=== PATIENT | female | born 1970 | race Caucasian/White ===

== ENCOUNTER 2020-08-14 19:50 | Emergency (ER) | payer MEDICARE, OTHER, SELFPAY ==
[2020-08-14 19:58] VITALS: BP 140/108; PULSE 92; RESP 20; TEMP 36.9; O2SAT 100
--- NOTE | 2020-08-14 20:06 | ED.WOUNDLAC ---
HPI - Wound/Laceration General Chief Complaint: Extremity Problem,Nontraumatic Stated Complaint: AMb Time Seen by Provider: 08/14/20 19:58 Source: patient Mode of arrival: EMS Limitations: no limitations History of Present Illness HPI narrative: 49-year-old woman who is on home dialysis and axis is her own AV fistula comes to the emergency department after having bleeding from her graft. She states that he was a lot of blood and that her room look like a murder seen. She states that she was cleaning it when it started bleeding. EMS arrived shortly thereafter and were able to stem the bleeding with a tourniquet above the graft and a pressure dressing over the graft. When she arrived she had numbness and pain in her left distal arm. tourniquet was applied at 19:28 and removed at 19:55. Onset (ago): minute(s) (30) Extremity Location: Left: arm Body four view annotation: 1. Graft site Place: home Associated symptoms: pain, loss of feeling/numbness and unable to move injured part Treatments prior to arrival: bandage and tourniquet Related Data Home Medications Medication Instructions Recorded Confirmed alprazolam 0.5 mg 08/08/19 metoprolol succinate 50 mg PO 08/08/19 omeprazole 40 mg 08/08/19 prednisone 2.5 mg 08/08/19 ropinirole 0.5 mg 08/08/19 topiramate 25 mg 08/08/19 tramadol 50 mg 08/08/19 venlafaxine 150 mg PO 08/08/19 Allergies Allergy/AdvReac Type Severity Reaction Status Date / Time Sulfa (Sulfonamide Allergy Mild Unknown Verified 08/08/19 13:27 Antibiotics) tacrolimus Allergy Unknown Swelling Verified 08/08/19 13:27 vancomycin Allergy Unknown Other Verified 08/08/19 13:27 Penicillins Allergy Anaphylaxis Verified 08/08/19 13:27 Review of Systems Constitutional: Constitutional: Denies chills and Denies fever(s) ENT: Denies epistaxis, Denies nasal congestion and Denies sore throat Cardiovascular: Cardiovascular: Denies chest pain and Denies radiating jaw, neck or arm pain Respiratory: Respiratory: Denies cough, Denies dyspnea and Denies wheezing Gastrointestinal: Gastrointestinal: Denies abdominal pain, Denies diarrhea, Denies nausea and Denies vomiting Genitourinary: Genitourinary: Denies hematuria, Denies nocturia and Denies dysuria Musculoskeletal: Musculoskeletal: Denies arthralgias, Denies joint swelling and Reports muscle cramps ( Left distal arm) Integumentary/Breasts: Skin/Breast: Denies pruritus, Denies erythema and Denies rash Neurologic: Denies vertigo, Denies dizziness and Denies syncope Hematologic/Lymphatic: Hematologic/Lymphatic: Denies easy bleeding and Denies easy bruising Allergic/Immunologic: Allergic/Immunologic: Denies lip swelling and Denies throat swelling PMFSH Past Medical History Medical History Adrenal disorder Anembryonic Anxiety Depression ESRD (end stage renal disease) Failed kidney transplant GERD (gastroesophageal reflux disease) Hemodialysis patient HTN (hypertension) TESS on CPAP Peripheral neuropathy Pneumonia Restless leg syndrome Sleep apnea Surgical History Surgical History History of nephrectomy, left History of nephrectomy, right Kidney transplant recipient Social History Social History Smoking status: Former smoker Gender identity (if verbalized by the patient): Female Exam Const: General: alert and ill appearing chronically Nutritional Appearance: obese Orientation/consciousness: patient oriented x3 Other: moderate acute distress HENMT: Head: normal to inspection Mouth: Yes moist mucous membranes Throat: posterior oropharynx normal Eyes: Conjunctivae: conjunctivae normal Pupils: Equal, round and reactive pupils present EOM: EOMs intact bilaterally Resp: Effort & Inspection: normal respiratory effort Auscultation: clear to auscultatio
[2020-08-14 20:30] LABS: Basophils Absolute Auto 0.05 K/mm3 (0.00-0.10); Basophils Percent Auto 0.5 % (0.0-1.0); Eosinophils Absolute Auto 0.06 K/mm3 (0.02-0.50); Eosinophils Percent Auto 0.5 % (1.0-6.0); Hematocrit 27.9 % (35.0-49.0); Hemoglobin 8.8 g/dL (12.0-15.0); Immature Granulocyte Absolute 0.03 K/mm3 (0.00-0.00); Immature Granulocyte Percent A 0.3 % (0.0-0.0); Lymphocytes Absolute Auto 3.61 K/mm3 (1.10-4.50); Mean Corpuscular HGB Conc 31.5 g/dL (32.0-36.0); Mean Corpuscular Hemoglobin 31.1 pg (27.0-31.0); Mean Corpuscular Volume 98.6 fL (78.0-102.0); Mean Platelet Volume 11.4 fl (9.2-11.8); Monocytes Absolute Auto 0.62 K/mm3 (0.10-0.90); Monocytes Percent Auto 5.7 % (2.0-11.0); Neutrophils Absolute Auto 6.6 K/mm3 (1.7-7.2); Nucleated Red Blood Cells Absolute Auto 0.06 K/mm3 (0.00-0.00); Nucleated Red Blood Cells Perc 0.5 % (0-0.0); Platelet Count Result 340 K/mm3 (150-420); Red Blood Count 2.83 M/mm3 (4.20-5.40); Red Cell Distribution Width 15.9 % (11.6-14.4)
--- NOTE | 2020-08-14 20:32 | PC.NURSE ---
[address] per dr morales for vascular consult
--- NOTE | 2020-08-14 20:36 | PC.NURSE ---
pt resting per cot. warm blanket applied . lights out for comfort.
[2020-08-14 20:45] LABS: Alkaline Phosphatase 99 U/L (46-116); Anion Gap 16 mmol/L (8-16); Aspartate Amino Transferase 15 U/L (15-37); Bilirubin,Total 0.4 mg/dL (0.00-1.00); Carbon Dioxide 20 mmol/L (21-32); Chloride 96 mmol/L (98-108); Potassium 4.1 mmol/L (3.5-5.1); Sodium 132 mmol/L (136-145); Total Protein 6.5 g/dL (6.4-8.2)
[2020-08-14 20:46] VITALS: BP 156/92; PULSE 82; RESP 20; TEMP 36.9; O2SAT 100
--- NOTE | 2020-08-14 21:13 | PC.NURSE ---
gbaas here and pt loaded to ems cot. report to megha. pt alert and oriented. no active bleeding noted to pressure dressing.
== END 2020-08-14 21:14 | disposition short-term general hospital (02) ==
PROVIDERS: Emergency Provider Emergency Medicine; PCP Family Medicine
DX: T82.838A Hemorrhage due to vascular prosthetic devices, implants and grafts, initial encounter (principal); N18.6 End stage renal disease; Z94.0 Kidney transplant status; K21.9 Gastro-esophageal reflux disease without esophagitis; Z87.891 Personal history of nicotine dependence
CPT/HCPCS: 36415; 80053; 85025; 85610; 85730; 99285

== ENCOUNTER → 2020-10-15 15:11 | Outpatient (CLI) | payer MEDICARE, OTHER, SELFPAY ==
--- NOTE | ~2020-10-15 | MR_ITS ---
EXAMINATION: MR brain/brain stem wo con EXAM DATE: 10/15/2020 16:21 INDICATION: Facial weakness facial paralysis. Generalized headaches. TECHNIQUE: Magnetic resonance imaging (MRI) of the brain/brain stem obtained without contrast. Sagitt al T1, axial diffusion, gradient echo (T2*), T1, T2, FLAIR sequences obtained. There is no prior st udy for comparison. FINDINGS: There is moderate-sized mucous retention cyst inferior aspect left maxillary sinus. There a re no areas of restricted diffusion to suggest acute infarction. There is no acute hemorrhage seen o n the T2*, a hemosiderin sensitive sequence. No intraparenchymal brain mass. The ventricles are norm al in size. There are no extra-axial collections. Flow voids are seen in the cerebral arteries on t he T2-weighted sequences consistent with their expected patency. The orbits are unremarkable. Soft tissue is unremarkable. IMPRESSION: 1. Left maxillary sinus retention cysts. 2. Unremarkable brain. Reviewed, dictated and finalized at location A.
== END ==
PROVIDERS: PCP Family Medicine; Visit Provider Family Medicine
DX: R29.810 Facial weakness (principal)
CPT/HCPCS: 70551

== ENCOUNTER 2020-10-22 16:32 | Outpatient (RCR) | payer MEDICARE, OTHER, SELFPAY ==
--- NOTE | 2020-10-22 17:44 | PTOPEVAL ---
Thank you for referring Tequila Woods to [facility].? The patient is scheduled to be seen for therapy? ____x/week for ___ weeks. Please review, sign, date and return this plan of care GERBER. I agree with and certify that the following plan of care is medically necessary. Referring Physician Date Admitting Provider: Attending Provider: Brayan Osullivan MD Referring Provider: *PT Outpatient Evaluation Start: 10/22/20 16:42 Freq: Status: Active Protocol: Document 10/22/20 16:45 JTF (Rec: 10/22/20 17:43 [facility] [id number]) Therapy Assessment Status Assessment Status Assessment Status Evaluation Outpatient Past Medical History Cardiovascular History Hx Hypertension Yes Gastrointestinal History Hx Gastroesophageal Reflux Disease Yes Genitourinary History Hx Dialysis Yes Hx Nephrectomy Yes Psychosocial History Hx Anxiety Yes Hx Depression Yes Evaluation Information Problem 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 she Family reports she did no notice anything until she began trying to eat. she reports she went to the ER to be evaluated for hammonds's palsy vs a stroke. she reports she has had 2 kidney transplants. she reports she had no kidneys now . she reports she does dialysis 3x weekly. she reports she was just recently in the hospital this past week from wednesday to wednesday. Prior Level of Function Comments Additional Prior Level of Function patient reports she has had no Comments issues for 35 years when she last had bells palsy. Pain Assessment Timing of Pain Assessment Timing of Pain Assessment Assessment Pain Scale Pain Scale Used Numeric (1 - 10) Self Report Pain Assessment Right Ear(s) Reported Pain Level 8 Pain Frequency Acute,Continuous Lowest Pain Intensity 7 Greatest Pain Intensity 10 Pain Score Pain Score 8: Self Report Interventions Used Interventions Used By Clinicians Activity or ADL's,Education, Exercise Palpation Assessment Palpation Palpation -dropping R side of the face -patient is unable to
--- NOTE | 2021-01-27 09:35 | PCPTNOTE ---
01/27/21 - mrs. quiroz has not returned to therapy in 2 months. she has been dc'd from skilled PT services and all progress towards goals will be taken from her most recent evaluation/note.
== END 2020-11-08 23:59 | disposition home or self-care (01) ==
LOC: CHSPT 16:32
PROVIDERS: PCP Family Medicine; Visit Provider Family Medicine
DX: G51.0 Bell's palsy (principal)
CPT/HCPCS: 97110; 97112; 97161; 97530

== ENCOUNTER 2020-11-29 10:50 | Emergency (ER) | payer MEDICARE, OTHER, SELFPAY ==
--- NOTE | ~2020-11-29 | CT_ITS ---
EXAMINATION: CT abdomen pelvis w con DATE: 11/29/2020 12:28 INDICATION: Right abdominal pain. Nausea and constipation. TECHNIQUE: Computed tomography (CT) of the abdomen and pelvis was performed with 100 mL Omnipaque 350 intravenous contrast. Automated exposure control and iterative reconstruction technique were employe d. The dose-length product was 827.58 mGy-cm. COMPARISON: None. FINDINGS: The visualized portions of the lung bases demonstrate minimal atelectasis on the right. The re is a small right pleural effusion. The heart size is normal. No pericardial effusion. The liver an d spleen are normal. The gallbladder is distended. The pancreas and adrenal glands are normal. There are are changes of bilateral nephrectomies. There are dystrophic calcifications in the left iliac fos sa and the overlying subcutaneous fat. There are no dilated loops of bowel. The appendix is normal. T here is a large volume of ascites. There is a peritoneal dialysis catheter in expected position. Ther e are no pathologically enlarged lymph nodes. There is a small sliding hiatal hernia. There is mild t horacolumbar spondylosis. IMPRESSION: 1. Gallbladder distention, which may be secondary to fasting or acute cholecystitis. Correlate with p hysical exam. 2. Large volume of ascites with peritoneal dialysis catheter in expected position. 3. Small right pleural effusion. Reviewed, dictated and finalized at location A. IMPRESSION: 1. Gallbladder distention, which may be secondary to fasting or acute cholecyst itis. Correlate with physical exam. 2. Large volume of ascites with peritoneal dialysis catheter in expected positi on. 3. Small right pleural effusion.
[2020-11-29 11:20] VITALS: BP 191/83; PULSE 102; RESP 18; TEMP 37; O2SAT 97
[2020-11-29 12:46] VITALS: BP 208/77; PULSE 62; RESP 20; O2SAT 99
[2020-11-29 13:01] LABS: Basophils Absolute Auto 0.02 K/mm3 (0.00-0.10); Basophils Percent Auto 0.2 % (0.0-1.0); Eosinophils Absolute Auto 0.03 K/mm3 (0.02-0.50); Eosinophils Percent Auto 0.3 % (1.0-6.0); Hematocrit 32.2 % (35.0-49.0); Hemoglobin 10.6 g/dL (12.0-15.0); Immature Granulocyte Absolute 0.03 K/mm3 (0.00-0.00); Immature Granulocyte Percent A 0.3 % (0.0-0.0); Lymphocytes Absolute Auto 2.06 K/mm3 (1.10-4.50); Lymphocytes Percent Auto 23.9 % (18.0-42.0); Mean Corpuscular HGB Conc 32.9 g/dL (32.0-36.0); Mean Corpuscular Hemoglobin 30.4 pg (27.0-31.0); Mean Corpuscular Volume 92.3 fL (78.0-102.0); Mean Platelet Volume 10.9 fl (9.2-11.8); Monocytes Absolute Auto 0.56 K/mm3 (0.10-0.90); Monocytes Percent Auto 6.5 % (2.0-11.0); Neutrophils Absolute Auto 5.9 K/mm3 (1.7-7.2); Neutrophils Percent Auto 68.8 % (50.0-70.0); Nucleated Red Blood Cells Absolute Auto 0.02 K/mm3 (0.00-0.00); Nucleated Red Blood Cells Perc 0.2 % (0-0.0); Platelet Count Result 237 K/mm3 (150-420); Red Blood Count 3.49 M/mm3 (4.20-5.40); Red Cell Distribution Width 15.1 % (11.6-14.4); White Blood Count 8.6 K/mm3 (4.8-10.8)
[2020-11-29 13:17] VITALS: BP 191/84
[2020-11-29 13:17] LABS: Alanine Aminotransferase 21 U/L (14-59); Albumin Level 3.2 g/dL (3.4-5.0); Alkaline Phosphatase 157 U/L (46-116); Amylase 8 U/L (25-115); Anion Gap 10 mmol/L (8-16); Aspartate Amino Transferase < 10 U/L (15-37); Bilirubin,Total 0.4 mg/dL (0.00-1.00); Blood Urea Nitrogen 39 mg/dL (7-18); Calcium 8.8 mg/dL (8.5-10.1); Carbon Dioxide 31 mmol/L (21-32); Chloride 92 mmol/L (98-108); Estimated CRCL calculation 7 ml/min; Estimated Glomerular Filt Rate 5; Glucose 80 mg/dL (70-99); Lipase 520 U/L (73-393); Osmolality Calculated 284 mOsm/kg (285-295); Potassium 3.9 mmol/L (3.5-5.1); Sodium 133 mmol/L (136-145); Total Protein 6.4 g/dL (6.4-8.2)
--- NOTE | 2020-11-29 13:34 | ED.ABDPAIN ---
HPI - Abdominal Pain General Chief Complaint: Abdominal Pain Stated Complaint: r sided abd pain Time Seen by Provider: 11/29/20 11:30 Source: patient Mode of arrival: ambulatory Limitations: no limitations History of Present Illness HPI narrative: Patient comes in with diffuse abdominal pain over the past 3 days. She has had abdominal pain since Wednesday, which she describes as a dull, crampy pain. She has been using her peritoneal dialysis catheter for 2.5 weeks. Previously she did hemodialysis with a fistula in her left upper arm. Pain has been ongoing, becoming more severe over the past 2.5 days with increasing intensity of pain and cramping. This has not been relieved by medications taken at home. MD elicited complaint: abdominal pain Pertinent past history: other (peritoneal dialysis) Onset (ago): day(s) Pain Consistency: constant Location: diffuse Severity: moderate Quality: cramping and dull Radiation: other (diffuse) Exacerbating factors: other (deep breathing) Relieving factors: nothing Associated symptoms: nausea and anorexia Related Data Home Medications Medication Instructions Recorded Confirmed alprazolam 0.5 mg PO DAILY 08/08/19 11/29/20 metoprolol succinate 50 mg PO DAILY 08/08/19 11/29/20 omeprazole 40 mg PO DAILY 08/08/19 11/29/20 prednisone 2.5 mg PO DAILY 08/08/19 11/29/20 ropinirole 0.5 mg PO DAILY 08/08/19 11/29/20 topiramate 25 mg PO DAILY 08/08/19 11/29/20 tramadol 50 mg PO DAILY 08/08/19 11/29/20 venlafaxine 150 mg PO DAILY 08/08/19 11/29/20 Allergies Allergy/AdvReac Type Severity Reaction Status Date / Time Sulfa (Sulfonamide Allergy Mild Unknown Verified 11/29/20 11:44 Antibiotics) tacrolimus Allergy Unknown Swelling Verified 11/29/20 11:44 vancomycin Allergy Unknown Other Verified 11/29/20 11:44 Penicillins Allergy Anaphylaxis Verified 11/29/20 11:44 Review of Systems Constitutional: Constitutional: Reports no additional constitutional complaints Comments: denies fever and chills Eyes: Eyes: Reports no additional eye complaints ENT: Reports system reviewed and no additional complaints, except as documented Cardiovascular: Cardiovascular: Reports no additional cardiovascular complaints Respiratory: Respiratory: Reports no additional respiratory complaints Gastrointestinal: Gastrointestinal: Reports no additional gastrointestinal complaints Genitourinary: Genitourinary: Reports no additional female genitourinary complaints Musculoskeletal: Musculoskeletal: Reports no additional musculoskeletal complaints Integumentary/Breasts: Skin/Breast: Reports system reviewed and no additional complaints, except as docu Neurologic: Reports system reviewed and no additional complaints, except as documented Psychiatric: Psychiatric: Reports no additional psychiatric complaints Endocrine: Endocrine: Reports no additional endocrine complaints Hematologic/Lymphatic: Hematologic/Lymphatic: Reports no additional hematologic/lymphatic complaints Allergic/Immunologic: Allergic/Immunologic: Reports no additional allergic/immunologic complaints PMFSH Past Medical History Medical History Adrenal disorder Anembryonic Anxiety Depression ESRD (end stage renal disease) Failed kidney transplant GERD (gastroesophageal reflux disease) Hemodialysis patient HTN (hypertension) TESS on CPAP Peripheral neuropathy Pneumonia Restless leg syndrome Sleep apnea Surgical History Surgical History History of nephrectomy, left History of nephrectomy, right Kidney transplant recipient Family History Family History Mother No significant family history Social History Social History Smoking status: Former smoker Gender identity (if verbalized by the patient): Female Exam Const: Gene
[2020-11-29 14:51] LABS: SARS-CoV-2 Ag Negative (Negative)
[2020-11-29 15:09] VITALS: BP 197/83; PULSE 62; RESP 20; TEMP 36.9; O2SAT 100
[2020-11-29 15:26] LABS: Erythrocyte Sedimentation Rate 24 mm/hr (0-20)
== END 2020-11-29 15:15 | disposition home or self-care (01) ==
PROVIDERS: Emergency Provider Emergency Medicine; PCP Family Medicine
DX: K65.9 Peritonitis, unspecified (principal); T86.12 Kidney transplant failure; N18.6 End stage renal disease; Z99.2 Dependence on renal dialysis; Z90.5 Acquired absence of kidney; E27.9 Disorder of adrenal gland, unspecified; K21.9 Gastro-esophageal reflux disease without esophagitis; I12.0 Hypertensive chronic kidney disease with stage 5 chronic kidney disease or end stage renal disease; G47.33 Obstructive sleep apnea (adult) (pediatric); G62.9 Polyneuropathy, unspecified; G25.81 Restless legs syndrome; F41.9 Anxiety disorder, unspecified; F32.9 Major depressive disorder, single episode, unspecified; Z87.891 Personal history of nicotine dependence; Z20.822 Contact with and (suspected) exposure to COVID-19
CPT/HCPCS: 36415; 74177; 80053; 82150; 83690; 85025; 85652; 87426; 99282; 99284; C9803; Q9967

== ENCOUNTER 2021-08-04 17:05 | Emergency (ER) | payer MEDICARE, OTHER, SELFPAY ==
[2021-08-04 17:22] VITALS: BP 92/74; PULSE 104; RESP 16; TEMP 36.5; O2SAT 98
--- NOTE | 2021-08-04 18:26 | ED.URI ---
HPI - URI/Sore Throat General Chief Complaint: Upper Respiratory Infection Stated Complaint: cough sinus pressure drainage Time Seen by Provider: 08/04/21 18:26 Source: patient History of Present Illness HPI Narrative: Patient presents with a 6-day history of nasal congestion and runny nose. Patient is currently on doxycycline for a catheter infection. Patient is not taking anything other than Ratna-Dawson plus for her symptoms. Patient is a dialysis patient and is not vaccinated. Patient denies any short of breath and no chest pain. Related Data Home Medications Medication Instructions Recorded Confirmed alprazolam 0.5 mg PO DAILY 08/08/19 08/04/21 metoprolol succinate 50 mg PO DAILY 08/08/19 08/04/21 omeprazole 40 mg PO DAILY 08/08/19 08/04/21 prednisone 2.5 mg PO DAILY 08/08/19 08/04/21 ropinirole 0.5 mg PO DAILY 08/08/19 08/04/21 topiramate 25 mg PO DAILY 08/08/19 08/04/21 tramadol 50 mg PO DAILY 08/08/19 08/04/21 venlafaxine 150 mg PO DAILY 08/08/19 08/04/21 Allergies Allergy/AdvReac Type Severity Reaction Status Date / Time Sulfa (Sulfonamide Allergy Mild Unknown Verified 08/04/21 17:33 Antibiotics) tacrolimus Allergy Unknown Swelling Verified 08/04/21 17:33 vancomycin Allergy Unknown Other Verified 08/04/21 17:33 Penicillins Allergy Anaphylaxis Verified 08/04/21 17:33 Review of Systems Review of Systems: CONSTITUTIONAL: Denies chills, or sweats. Reports fever and generalized body aches EYES: Denies visual changes, redness, or discharge. ENT: Denies otalgia. Reports nasal congestion runny nose and sore throat CARDIOVASCULAR: Denies chest pain, palpitations, or edema. RESPIRATORY: Denies dyspnea. Reports occasional cough GASTROINTESTINAL: Denies abdominal pain, nausea, vomiting, or diarrhea. GENITOURINARY: Denies dysuria or hematuria. SKIN: Denies rash or itching. MUSCULOSKELETAL: Denies back pain, joint pain, or myalgia. Reports generalized body aches NEUROLOGIC: Denies headache, numbness, or weakness. PSYCHIATRIC: Denies anxiety or depression. [facility] Past Medical History Medical History Adrenal disorder Anembryonic Anxiety Depression ESRD (end stage renal disease) Failed kidney transplant GERD (gastroesophageal reflux disease) Hemodialysis patient HTN (hypertension) TESS on CPAP Peripheral neuropathy Pneumonia Restless leg syndrome Sleep apnea Surgical History Surgical History History of nephrectomy, left History of nephrectomy, right Kidney transplant recipient Family History Family History Mother No significant family history Social History Social History Smoking status: Former smoker Gender identity (if verbalized by the patient): Female Comments At time of signature, agree with nursing past medical, surgical, social and family history. There is no relevant family history pertinent to the presenting complaint Exam Narrative: The patient is a well-developed, well-nourished in no acute distress. SKIN: Skin is warm and dry without erythema, swelling or exudate. There is good turgor. No tenting. HEAD: Atraumatic. Normocephalic. No temporal or scalp tenderness. EYES: Moist and bright. Sclera and conjunctivae normal. No discharge. PERRLA. Extraocular motions intact. Gross visual acuity intact. EARS: Pinna is normal shape and contour. Clear external auditory canals. TM pearly wisdom with good cone of light, no erythema or suppuration. Bilateral cerumen noted no gross hearing deficit. NOSE: pink, moist mucosa with good air movement. Clear rhinorrhea without nasal flaring. Septum midline. Mouth: moist mucous membranes. THROAT; mild erythema noted to posterior oropharynx with moderate postnasal drainage. Without exudate or ulceration.. Uvula midline. Normal movement of soft palat
== END 2021-08-04 18:37 | disposition home or self-care (01) ==
PROVIDERS: Emergency Provider Nurse Practitioner Family
DX: J06.9 Acute upper respiratory infection, unspecified (principal); Z20.822 Contact with and (suspected) exposure to COVID-19; Z87.891 Personal history of nicotine dependence; G47.33 Obstructive sleep apnea (adult) (pediatric); G25.81 Restless legs syndrome; I12.0 Hypertensive chronic kidney disease with stage 5 chronic kidney disease or end stage renal disease; N18.6 End stage renal disease; Z99.2 Dependence on renal dialysis; F41.9 Anxiety disorder, unspecified; F32.A Depression, unspecified; K21.9 Gastro-esophageal reflux disease without esophagitis; Z90.5 Acquired absence of kidney; T86.12 Kidney transplant failure
CPT/HCPCS: 99213; G0463

== ENCOUNTER 2022-04-25 10:25 | Inpatient (IN) | payer MEDICARE, OTHER, SELFPAY ==
[2022-04-25] VITALS (37 sets, daily range): BP systolic 108–222; BP diastolic 51–124; PULSE 59–82; RESP 10–25; TEMP 36.2–36.8; O2SAT 96–100
--- NOTE | ~2022-04-25 | CT_ITS ---
EXAMINATION: CT abdomen pelvis wo con DATE: 04/25/2022 12:03 INDICATION: Abdominal pain with nausea and vomiting. Peritoneal dialysis. TECHNIQUE: Computed tomography (CT) of the abdomen and pelvis was performed without intravenous contr ast. The dose-length product was 1054.00 mGy-cm. Automated exposure control and iterative reconstruct ion technique were employed. COMPARISON: CT dated 11/29/2020. FINDINGS: Lung bases are unremarkable. Heart size normal. There is mild thickening of the distal esop hagus. Small hiatal hernia. There is ascites. There is a peritoneal dialysis catheter coiled in the p livia. There is scarring in the left abdomen laterally with associated dystrophic calcifications. The re is a calcified soft tissue mass in the left iliac fossa, likely a failed transplant kidney. Small amount of free air, likely iatrogenic from peritoneal dialysis catheter. The liver, spleen, schmitt creas, adrenal glands are unremarkable. The kidneys are not visualized, likely surgically absent. No acute osseous abnormality. IMPRESSION: 1. No acute abdominal abnormality. 2: There is peritoneal dialysis catheter coiled in the pelvis. Moderate free fluid. Small amount of g as, likely iatrogenic from the catheter. Reviewed, dictated and finalized at location A. IMPRESSION: 1. No acute abdominal abnormality. 2: There is peritoneal dialysis catheter coiled in the pelvis. Moderate free fl uid. Small amount of gas, likely iatrogenic from the catheter.
--- NOTE | ~2022-04-25 | CT_ITS ---
EXAMINATION: CT abdomen pelvis wo con DATE: 05/03/2022 10:05 INDICATION: peritonitis TECHNIQUE: Computed tomography (CT) of the abdomen and pelvis was performed without intravenous contr ast. Automated exposure control and iterative reconstruction technique were employed. The dose-length product was 1002.06 mGy-cm. COMPARISON: 04/25/2022. FINDINGS: Lower thorax: Coronary artery calcification. Bilateral dependent atelectasis/scar Liver: Normal. Biliary/Gallbladder: Mildly distended gallbladder, without stone or inflammatory change. No bile duct dilation. Pancreas: Mild atrophy Spleen: Peripheral wedge-shaped hypodensities in the spleen. Adrenals:No mass. Kidneys: Bilateral nephrectomy. GI tract: No small or large bowel dilation. Normal appendix. Mesentery/Peritoneum: Trace ascites. No mass or free air. Retroperitoneum: No mass. Atherosclerotic abdominal aortic and/or arterial calcifications. Pelvis: Small volume free pelvic fluid. Atrophic uterus. Dystrophic calcifications along the left ne ac vessels. Soft Tissues: Coarse, dystrophic calcification in the subcutaneous tissues of the left lower quadrant possibly related to a prior kidney transplant. Left abdominal peritoneal dialysis catheter terminati ng in the pelvis. Mild body wall edema. Bones: No acute osseous finding. 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 No other acute abdominopelvic process detected. Reviewed, dictated and finalized at location K. IMPRESSION: Peripheral, wedge-shaped hypodensities in the spleen, likely representing splen ic infarcts. No other acute abdominopelvic process detected.
[2022-04-25] MEDS: MORPHINE SULFATE (*CRX) 4 MG/ML INJ IV PUSH (11:32)
[2022-04-25] MEDS: ONDANSETRON INJ 4 MG/2 ML VIAL IV PUSH ×3 (11:32→21:18)
[2022-04-25 11:42] LABS: Basophils Absolute Auto 0.1 K/mm3 (0.0-0.1); Basophils Percent Auto 0.3 % (0.2-1.2); Eosinophils Percent Auto 0.1 % (0-4.4); Hematocrit 40.1 % (37.0-47.0); Hemoglobin 13.8 g/dL (12.0-15.0); Immature Granulocyte Absolute 0.08 K/mm3 (0.00-0.031); Immature Granulocyte Percent A 0.4 % (0-0.5); Lymphocytes Absolute Auto 1.44 K/mm3 (0.9-3.2); Lymphocytes Percent Auto 7.9 % (18.3-44.2); Mean Corpuscular HGB Conc 34.4 g/dl (32-36); Mean Corpuscular Hemoglobin 31.1 pg (26-34); Mean Corpuscular Volume 90.3 fl (80-100); Mean Platelet Volume 10.9 fl (7.4-10.4); Monocytes Absolute Auto 0.7 K/mm3 (0.1-0.6); Monocytes Percent Auto 4.1 % (2.6-8.5); Neutrophils Absolute Auto 15.8 K/mm3 (1.3-6.7); Neutrophils Percent Auto 87.2 % (45.5-73.1); Platelet Count Result 326 k/mm3 (150-375); Red Blood Count 4.44 M/mm3 (4.2-5.4); Red Cell Distribution Width 14.1 % (11.5-14.5); White Blood Count 18.1 K/mm3 (4.5-10.0)
[2022-04-25 11:51] LABS: Alanine Aminotransferase 18 U/L (6-35); Albumin Level 4.8 g/dL (3.5-5.1); Alkaline Phosphatase 130 U/L (38-126); Anion Gap 21 mmol/L (8-16); Aspartate Amino Transferase 24 U/L (14-36); Bilirubin,Total 0.6 mg/dL (0.2-1.3); Blood Urea Nitrogen 30 mg/dL (7-17); Calcium 9.9 mg/dL (8.4-10.2); Carbon Dioxide 26 mmol/L (22-30); Chloride 88 mmol/L (98-107); Estimated CRCL calculation 7 ml/min; Estimated Glomerular Filt Rate 5; Glucose 155 mg/dL (65-110); Lipase 249 U/L (23-300); Sodium 135 mmol/L (137-145)
--- NOTE | 2022-04-25 14:08 | ED.GENADULT ---
HPI - General Adult General Chief complaint: Abdominal Pain Stated complaint: vomiting since yesterday; abd pain. PD patient Time Seen by Provider: 04/25/22 10:47 History of Present Illness HPI narrative: Patient is a 51-year-old female who presents to the ER with abdominal pain and nausea and vomiting. Has been vomiting since yesterday. She reports her abdominal pain is on the right side and also on the left side at times. Pain increases after she eats and causes her to vomit. No diarrhea. No fevers or chills or sweats. She undergoes peritoneal dialysis. She has not been checking her peritoneal fluid to see if it is become more cloudy. Her geoscientist is located at [facility]. No history of SBP. Patient reports she takes daily prednisone for immunosuppressive therapy. Related Data Home Medications Medication Instructions Recorded Confirmed alprazolam 0.5 mg tablet 0.5 mg PO DAILY 08/08/19 04/25/22 metoprolol succinate 50 mg 25 mg PO DAILY 08/08/19 04/25/22 tablet,extended release 24 hr omeprazole 40 mg capsule,delayed 40 mg PO DAILY 08/08/19 04/25/22 release prednisone 2.5 mg tablet 2.5 mg PO DAILY 08/08/19 04/25/22 venlafaxine 150 mg 150 mg PO DAILY 08/08/19 04/25/22 capsule,extended release 24 hr Allergies Allergy/AdvReac Type Severity Reaction Status Date / Time Sulfa (Sulfonamide Allergy Mild Unknown Verified 04/25/22 10:40 Antibiotics) tacrolimus Allergy Unknown Swelling Verified 04/25/22 10:40 vancomycin Allergy Unknown Other Verified 04/25/22 10:40 Penicillins Allergy Anaphylaxis Verified 04/25/22 10:40 Review of Systems Review of Systems: All systems reviewed & are unremarkable except as noted in HPI and below Constitutional: Constitutional: Denies chills, Reports fatigue and Denies fever(s) ENT: Denies sore throat Cardiovascular: Cardiovascular: Denies chest pain, Denies rapid heart rate and Denies radiating jaw, neck or arm pain Respiratory: Respiratory: Denies cough and Denies dyspnea Gastrointestinal: Gastrointestinal: Reports abdominal pain, Denies heartburn, Denies diarrhea, Reports nausea and Reports vomiting Genitourinary: Comments: Patient does not make urine PMFSH Past Medical History Medical History (Updated 04/25/22 @ 18:44 by Kiran Upton MD) Adrenal insufficiency Anxiety Congenital kidney disease Depression End-stage renal disease on peritoneal dialysis Failed kidney transplant Gastroesophageal reflux disease Hypertension Obstructive sleep apnea No longer wearing CPAP. Orthostatic hypotension Peripheral neuropathy Restless leg syndrome Surgical History Surgical History (Updated 04/25/22 @ 16:24 by Kathi Underwood PA-C) History of kidney transplant History of nephrectomy, left History of nephrectomy, right Status post creation of arteriovenous fistula Family History Family History (Updated 04/25/22 @ 16:25 by Kathi Underwood PA-C) Mother Kidney disease Father Cerebrovascular accident Sibling Retinoblastoma Social History Social History (Updated 04/25/22 @ 17:07 by Kathi Underwood PA-C) Social History: Lives alone in [place] with 2 cats. No children. On disability. Former smoker, quit in 2014. No alcohol or illicit substance abuse. Surrogate medical decision maker: Taran Woods, brother. Code status: Full code. Spiritual care concerns: No Exam Narrative: GENERAL: Well-appearing, well-nourished, and in no acute distress. HEAD: Normocephalic, atraumatic. EYES: PERRLA and EOMI. ENT: Mucous membranes moist. CHEST: Clear to auscultation. No respiratory distress. HEART: Regular rate and rhythm. Normal peripheral pulses. ABDOMEN: Soft, mild diffuse tenderness without guarding, nondistended, normal active bowel sounds. EXTREMITIES: Normal range of motion. 1+ edema. SKIN: Warm, dry, no rash. NEURO: Alert and oriented x3. PSYCH: Normal mood and affect. Course Course Emergency Course: Patient with benito
[2022-04-25] MEDS: MIDODRINE HCL 10 MG TABLET PO (15:21)
--- NOTE | 2022-04-25 16:08 | PC.NURSE ---
VOR[facility] to not start antibx from CARL Underwood called floor to inform
--- NOTE | 2022-04-25 16:15 | PM.IMHP ---
H&P: HPI History of Present Illness Date/Time: 04/25/22 16:15 <Kathi Underwood PA-C - Last Filed: 04/25/22 22:35> Chief Complaint: Abdominal pain, nausea, vomiting. <Kathi Underwood PA-C - Last Filed: 04/25/22 22:35> Narrative: This is a pleasant 51-year-old female with end-stage renal disease on peritoneal dialysis status post failed kidney transplant x3, hypertension, orthostatic hypotension, gastroesophageal reflux disease, anemia of chronic kidney disease, renal osteodystrophy, obstructive sleep apnea, depression, and anxiety who presented to the emergency department for evaluation of abdominal pain, nausea, and vomiting since . She describes a constant sharp and shooting pain in the periumbilical region which does not radiate. It has been severe enough that she has not been able to sleep and she has not been able to hold down Tylenol for pain due to persistent nausea. She has not been able to hold down any food or much in the way of liquid either. Her stomach has been bloated and she has been constipated, reportedly not having a bowel movement since Wednesday which is unusual for her. She had multiple episodes of nonbilious and nonbloody emesis on and she has had dry heaves since that time. Due to continued symptoms she spoke with the dialysis nurse over the phone who told her she should probably come to the ER for evaluation. Her blood pressure was 222/122 on arrival today but has improved to the 120 to 140 systolic with antiemetics and analgesics. She was previously treated for hypertension however over the last 2 months she has been having troubles with orthostatic hypotension and she is now on midodrine. She has been afebrile and she does not think she has been having fevers at home. Workup in the ED was significant for a white blood cell count of 18.1, sodium 135, potassium 3.0, BUN 30, creatinine 9.10, lipase 249, AST 24, ALT 18. CT of the abdomen and pelvis showed no acute abdominal abnormalities. Her case was discussed with Dr. Pfeiffer (nephrology) and he recommends starting her on empiric ceftazidime; unfortunately there is not a dialysis nurse that can come take a dialysate sample today. At the time my evaluation she is feeling better after receiving IV morphine and ondansetron. <Kathi Underwood PA-C - Last Filed: 04/25/22 22:35> Review of Systems Review of Systems: Twelve systems were reviewed. No chills or sweats. No headache. No sinus congestion or sore throat. No cough. She felt a bit short of breath the last couple of days which she relates to having abdominal bloating, that has since improved. No chest pain. Except as documented, all other systems were reviewed and are negative. <Kathi Underwood PA-C - Last Filed: 04/25/22 22:35> [facility] Past Medical History Medical History: Medical History (Updated 04/26/22 @ 11:54 by Johnny Pfeiffer MD) Adrenal insufficiency Anxiety Congenital kidney disease Depression End-stage renal disease on peritoneal dialysis Erythropoietin deficiency anemia Failed kidney transplant Gastroesophageal reflux disease Hypertension Obstructive sleep apnea No longer wearing CPAP. Orthostatic hypotension Peripheral neuropathy Renal osteodystrophy Restless leg syndrome <Kathi Underwood PA-C - Last Filed: 04/25/22 22:35> Surgical History Surgical History: Surgical History History of kidney transplant History of nephrectomy, left History of nephrectomy, right Status post creation of arteriovenous fistula <Kathi Underwood PA-C - Last Filed: 04/25/22 22:35> Family History Family History: Family History Mother Kidney disease Father Cerebrovascular accident Sibling Retinoblastoma <Kathi Underwood PA-C - Last Filed: 04/25/22 22:35> Social History Social History: Social History (Reviewed 04/26/22 @ 11:53 b
--- NOTE | 2022-04-25 16:50 | PC.NURSE ---
Diana pinto called and notified of PD pt admission.
--- NOTE | 2022-04-25 16:51 | PC.NURSE ---
IV ABT held at this time D/T nursing report from ER stating provider ordered to hold.
--- NOTE | 2022-04-25 16:56 | PC.NURSE ---
IV ABT clarified with provider. Meds to be given.
[2022-04-25] MEDS: BISACODYL 10 MG SUPPOSITORY RECTAL (17:47)
[2022-04-25] MEDS: SODIUM CHLORIDE 0.9% IV 1,000 ML 100 ML IV CONT (17:47)
[2022-04-25] MEDS: POTASSIUM CHLORIDE 20 MEQ TABLET 40 MEQ PO ×2 (17:47→23:54)
--- NOTE | 2022-04-25 18:30 | PC.NURSE ---
Pt's IV infiltrated. Site changed with attempts x2. Vancomycin initiated per orders at 1830. Pt notified nursing that she has had a reaction in the past to Vancomycin. Drip stopped and provider notified.
[2022-04-25] MEDS: diphenhydrAMINE HCl INJ 50 MG/ML VIAL 25 MG IV PUSH (18:56)
[2022-04-25] MEDS: HEPARIN SODIUM 5,000 UNITS/ML VIAL 5000 UNITS SUB-Q (20:28)
[2022-04-25] MEDS: MORPHINE SULFATE (*CRX) 2 MG/ML INJ IV PUSH (20:30)
[2022-04-25 21:30] LABS: Anion Gap 18 mmol/L (8-16); Blood Urea Nitrogen 33 mg/dL (7-17); Calcium 8.9 mg/dL (8.4-10.2); Carbon Dioxide 27 mmol/L (22-30); Chloride 87 mmol/L (98-107); Estimated CRCL calculation 7 ml/min; Estimated Glomerular Filt Rate 4; Glucose 87 mg/dL (65-110); Magnesium 1.3 mg/dL (1.6-2.3); Potassium 3.1 mmol/L (3.4-5.0); Sodium 132 mmol/L (137-145)
[2022-04-25] MEDS: MAGNESIUM SULF 2 GM/WATER 50ML 2 GM/50 ML BAG IVPB (23:54)
[2022-04-26] VITALS (10 sets, daily range): BP systolic 104–155; BP diastolic 65–90; PULSE 60–83; RESP 14–18; TEMP 36.1–36.7; O2SAT 94–100
[2022-04-26] MEDS: MORPHINE SULFATE (*CRX) 2 MG/ML INJ IV PUSH ×2 (02:58→07:11)
[2022-04-26 06:10] LABS: Hemoglobin 11.3 g/dL (12.0-15.0); Mean Corpuscular HGB Conc 33.2 g/dl (32-36); Mean Corpuscular Hemoglobin 30.6 pg (26-34); Mean Corpuscular Volume 92.1 fl (80-100); Mean Platelet Volume 11.3 fl (7.4-10.4); Platelet Count Result 280 k/mm3 (150-375); Red Blood Count 3.69 M/mm3 (4.2-5.4); Red Cell Distribution Width 14.1 % (11.5-14.5); White Blood Count 15.3 K/mm3 (4.5-10.0)
[2022-04-26 06:41] LABS: Alanine Aminotransferase 15 U/L (6-35); Albumin Level 3.4 g/dL (3.5-5.1); Alkaline Phosphatase 101 U/L (38-126); Anion Gap 14 mmol/L (8-16); Aspartate Amino Transferase 16 U/L (14-36); Bilirubin,Total 0.5 mg/dL (0.2-1.3); Blood Urea Nitrogen 33 mg/dL (7-17); Calcium 8.6 mg/dL (8.4-10.2); Carbon Dioxide 25 mmol/L (22-30); Chloride 93 mmol/L (98-107); Estimated CRCL calculation 6 ml/min; Estimated Glomerular Filt Rate 4; Glucose 99 mg/dL (65-110); Magnesium 2.2 mg/dL (1.6-2.3); Phosphorus 5.9 mg/dL (2.5-4.5); Potassium 3.7 mmol/L (3.4-5.0); Sodium 132 mmol/L (137-145)
[2022-04-26] MEDS: FLUTICASONE PROPIONATE 0.05% NA SPR 16 GM BTL (*BKC) 2 SPRAY NASAL (09:11)
[2022-04-26 10:02] LABS: Hepatitis B Surface Antigen Negative (Negative)
[2022-04-26 10:05] LABS: Appearance Peritoneal Fluid Cloudy (Clear); Color Peritoneal Fluid Yellow (Colorless); Lymphocytes Peritoneal Fluid 2 %; Neutrophils Peritoneal Fluid 76 % (0-25); Nucleated Cells Peritoneal Flu 2287 /uL (0-500); RBC Peritoneal Fluid 0 /uL (0-100000); Source Peritoneal Fluid Peritoneal Fluid
[2022-04-26 10:06] LABS: Monocytes Peritoneal Fluid 22 %
[2022-04-26 10:31] LABS: Hepatitis B Surface Anti Res Positive
[2022-04-26] MEDS: HEPARIN SODIUM 5,000 UNITS/ML VIAL 5000 UNITS SUB-Q (11:43)
--- NOTE | 2022-04-26 11:48 | PM.CNNEP ---
Assessment and Plan Assessment and plan (1) End-stage renal disease on peritoneal dialysis: Code(s): N18.6 - End stage renal disease; Z99.2 - Dependence on renal dialysis Status: Acute Assessment and Plan: the patient has end-stage renal disease. This is due to reflux nephropathy. She had been on peritoneal dialysis and had a transplant and now is back on peritoneal dialysis. (2) Generalized abdominal pain: Code(s): R10.84 - Generalized abdominal pain Status: Acute Assessment and Plan: the patient has abdominal pain, nausea vomiting and diarrhea. At 1st it seemed like it might be viral gastroenteritis. However the patient is on peritoneal dialysis. The patient did drop her blood pressure in the emergency room last night according to Dr. Upton and so there was concern of some other sort of septic issue going on. We called the dialysis nurse however there was nobody orthodontic technician assistant that covers peritoneal dialysis. I was not comfortable having someone in experience sample the fluid so we went ahead and gave her the IV antibiotics for fear of sepsis because we did not want to delay this any longer. This morning the patient feels a little bit better after the IV antibiotics but still has some discomfort. The dialysis nurse who knows PD was orthodontic technician assistant today so she came and did the sampling and put her on PD now. She will come back this evening and do another round of dialysis tonight. If blood cultures are negative we can switch to intraperitoneal antibiotics. (3) Electrolyte abnormality: Code(s): E87.8 - Other disorders of electrolyte and fluid balance, not elsewhere classified Status: Acute Assessment and Plan: 1. Sodium level slightly low. This is due to her end-stage kidneys and water drinking. 2. Potassium is doing well 3. bicarbonate level is normal. 4. Phosphorus level is a little high at 5.9. Binders were not on her admission med list. Her calcium level is normal. Will start PhosLo with meals. (4) Gastroesophageal reflux disease: Code(s): K21.9 - Gastro-esophageal reflux disease without esophagitis Status: Acute Assessment and Plan: The patient is on Omeprazole (5) Hypertension: Code(s): I10 - Essential (primary) hypertension Status: Acute Assessment and Plan: the patient had hypertension but now does not require antihypertensives because of her low blood pressure. (6) Orthostatic hypotension: Code(s): I95.1 - Orthostatic hypotension Status: Acute Assessment and Plan: Her blood pressure has been soft at home apparently. She is supposed to see a web site designer. Because of her soft blood pressure I will order an echocardiogram while she is here to rule out cardiomyopathy or some valvular issue.. (7) Obstructive sleep apnea: Code(s): G47.33 - Obstructive sleep apnea (adult) (pediatric) Status: Acute (8) Erythropoietin deficiency anemia: Code(s): D63.1 - Anemia in chronic kidney disease Status: Acute Assessment and Plan: The patient has anemia but not low enough to require Epogen. (9) Renal osteodystrophy: Code(s): N25.0 - Renal osteodystrophy Status: Acute Assessment and Plan: Phosphorus level is a little bit high. Starting PhosLo as above. History of Present Illness Reason for Consult Consult date: 04/26/22 Chief Complaint Chief complaint: Abdominal Pain, Vomitting, possible sbp History of Present Illness Narrative: Tequila is a very pleasant 51-year-old lady who has multiple medical problems including end-stage renal disease on peritoneal dialysis, history of kidney transplant, obstructive sleep apnea, anemia but not requiring EPO yet, renal osteodystrophy with pretty good phosphorus levels lately, hypertension since 8-year-old, chronic reflux nephropathy which led to the end-stage renal disease, anxiety, depression, GERD, seasonal al
--- NOTE | 2022-04-26 11:55 | PM.EVENT ---
Event Note Event Note Event Note: The patient is on peritoneal dialysis. Fluid looks minimally cloudy. She has had 1 exchange. The patient is tolerating the treatment. She was seen at 11:30 a.m.
[2022-04-26 12:41] LABS: EDCOVIDSCREEN Negative (Negative)
[2022-04-26] MEDS: PANTOPRAZOLE 40 MG TABLET PO (12:46)
--- NOTE | 2022-04-26 15:27 | PM.IMPN ---
Progress Note: A&P Assessment and Plan (1) Abdominal pain: Code(s): R10.9 - Unspecified abdominal pain Status: Acute Assessment and Plan: ? sbp iv abx cx pending ? constipation - lactulose ordered (2) Dehydration: Code(s): E86.0 - Dehydration Status: Acute (3) Electrolyte abnormality: Code(s): E87.8 - Other disorders of electrolyte and fluid balance, not elsewhere classified Status: Acute (4) Hypertension: Code(s): I10 - Essential (primary) hypertension Status: Acute (5) Orthostatic hypotension: Code(s): I95.1 - Orthostatic hypotension Status: Acute (6) End-stage renal disease on peritoneal dialysis: Code(s): N18.6 - End stage renal disease; Z99.2 - Dependence on renal dialysis Status: Acute (7) Adrenal insufficiency: Code(s): E27.40 - Unspecified adrenocortical insufficiency Status: Acute (8) Gastroesophageal reflux disease: Code(s): K21.9 - Gastro-esophageal reflux disease without esophagitis Status: Acute Subjective Date/time seen: 04/26/22 15:27 constipated abd pain about the same tolerated pd Exam Narrative: General: Chronically ill, nontoxic-appearing female sitting up in bed. Weight: 85 kilograms. BMI: 33.2. HEENT: PERRL, EOMI. Sclera anicteric. Dry mucous membranes fair Neck: Supple. Respiratory: Lungs are clear to auscultation bilaterally. Cardiovascular: Regular rate and rhythm with S1-S2. Gastrointestinal: Abdomen is soft, nontender, and nondistended with positive bowel sounds. It should be noted that she received IV morphine not long prior to my exam. No guarding or rebound tenderness. Peritoneal dialysis catheter in the left mid quadrant is clean, dry, and intact. Skin: Warm and dry. Extremities: No cyanosis, clubbing, or edema. Radial and pedal pulses intact. Neurological: Alert. Cranial nerves 2-12 are grossly intact. No gross focal deficits to casual conversation. Psychiatric: Pleasant and cooperative with normal mood and affect. Judgment and insight intact. Objective Data Vital Signs Vital Signs: Vital Signs - 24 hr 04/25/22 15:36 04/25/22 15:45 04/25/22 15:46 Temperature Pulse Rate 73 74 78 Respiratory Rate 17 15 16 Blood Pressure 142/85 H Pulse Oximetry 98 98 98 Oxygen Delivery 04/25/22 16:00 04/25/22 16:01 04/25/22 16:57 Temperature 98.2 F Pulse Rate 81 81 69 Respiratory Rate 17 12 18 Blood Pressure 139/94 H 139/70 Pulse Oximetry 100 100 Oxygen Delivery 04/25/22 18:41 04/25/22 19:27 04/25/22 23:15 Temperature 97.8 F 97.3 F L 97.2 F L Pulse Rate 59 L 66 72 Respiratory Rate 18 18 17 Blood Pressure 138/74 121/67 108/51 L Pulse Oximetry 100 99 97 Oxygen Delivery 04/26/22 04:00 04/26/22 08:00 04/26/22 09:04 Temperature 97.3 F L 97.6 F 97.3 F L Pulse Rate 73 76 73 Respiratory Rate 18 14 18 Blood Pressure 155/87 H 152/90 H 155/87 H Pulse Oximetry 100 98 Oxygen Delivery Room Air 04/26/22 12:00 04/26/22 14:40 04/26/22 08:00 Temperature 97.7 F 98 F Pulse Rate 83 77 Respiratory Rate 14 14 Blood Pressure 104/67 119/65 Pulse Oximetry 96 97 Oxygen Delivery Room Air Intake/Output Intake/Output: Intake & Output 04/23/22 04/24/22 04/25/22 04/26/22 23:59 23:59 23:59 23:59 Intake Total 1100 Output Total 0 Balance 1100 Meds/Results Medications: Active Medications Generic Name Dose Route Start Last Admin Trade Name Freq PRN Reason Stop Dose Admin Alprazolam 0.5 mg 04/26/22 21:00 Alprazolam (*Crx) 0.5 Mg Tablet PO HS [facility] Calcium Acetate 667 mg 04/26/22 12:00 04/26/22 12:45 Calcium Acetate 667 Mg Tablet PO Not Given TIDWM JUDITH Fluticasone Propionate 2 spray 04/26/22 09:00 04/26/22 09:11 Fluticasone Propionate 0.05% Na Spr 16 Gm Btl (*Bkc) NASAL 2 spray DAILY JUDITH Administration Heparin Sodium (Porcine) 5,000 units 04/25/22 21:00 04/26/22 11:43 Heparin So
[2022-04-26] MEDS: LACTULOSE 20 GM/30 ML UDC PO (15:37)
[2022-04-27] VITALS (7 sets, daily range): BP systolic 120–136; BP diastolic 66–76; PULSE 91–100; RESP 16–18; TEMP 36.1–37; O2SAT 93–99
[2022-04-27] MEDS: HEPARIN SODIUM 5,000 UNITS/ML VIAL 5000 UNITS SUB-Q ×3 (01:16→20:43)
[2022-04-27 05:30] LABS: Basophils Absolute Auto 0.1 K/mm3 (0.0-0.1); Basophils Percent Auto 0.4 % (0.2-1.2); Eosinophils Absolute Auto 0.1 K/mm3 (0-0.3); Eosinophils Percent Auto 0.4 % (0-4.4); Hematocrit 35.2 % (37.0-47.0); Hemoglobin 11.6 g/dL (12.0-15.0); Immature Granulocyte Absolute 0.06 K/mm3 (0.00-0.031); Immature Granulocyte Percent A 0.4 % (0-0.5); Lymphocytes Absolute Auto 1.74 K/mm3 (0.9-3.2); Lymphocytes Percent Auto 10.9 % (18.3-44.2); Mean Corpuscular Hemoglobin 31.1 pg (26-34); Mean Corpuscular Volume 94.4 fl (80-100); Mean Platelet Volume 11.5 fl (7.4-10.4); Monocytes Absolute Auto 1.5 K/mm3 (0.1-0.6); Monocytes Percent Auto 9.6 % (2.6-8.5); Neutrophils Absolute Auto 12.5 K/mm3 (1.3-6.7); Neutrophils Percent Auto 78.3 % (45.5-73.1); Platelet Count Result 276 k/mm3 (150-375); Red Blood Count 3.73 M/mm3 (4.2-5.4); Red Cell Distribution Width 14.1 % (11.5-14.5); White Blood Count 15.9 K/mm3 (4.5-10.0)
[2022-04-27] MEDS: PANTOPRAZOLE 40 MG TABLET PO ×2 (09:18→20:43)
[2022-04-27] MEDS: FLUTICASONE PROPIONATE 0.05% NA SPR 16 GM BTL (*BKC) 2 SPRAY NASAL (09:19)
[2022-04-27 09:56] LABS: Albumin Level 3.7 g/dL (3.5-5.1); Anion Gap 17 mmol/L (8-16); Blood Urea Nitrogen 23 mg/dL (7-17); Calcium 9.4 mg/dL (8.4-10.2); Carbon Dioxide 27 mmol/L (22-30); Chloride 90 mmol/L (98-107); Estimated CRCL calculation 8 ml/min; Estimated Glomerular Filt Rate 5; Glucose 115 mg/dL (65-110); Phosphorus 4.5 mg/dL (2.5-4.5); Potassium 3.1 mmol/L (3.4-5.0); Sodium 134 mmol/L (137-145)
--- NOTE | 2022-04-27 11:07 | PM.IMPN ---
Progress Note: A&P Assessment and Plan (1) Abdominal pain: Code(s): R10.9 - Unspecified abdominal pain Status: Acute Assessment and Plan: awaiting cultures from peritoneal fluid. Continue IV antibiotics. Appreciate Nephrology consult. Patient is having some constipation. Will increase p.r.n. medications (2) Dehydration: Code(s): E86.0 - Dehydration Status: Acute Assessment and Plan: resolved (3) Electrolyte abnormality: Code(s): E87.8 - Other disorders of electrolyte and fluid balance, not elsewhere classified Status: Acute Assessment and Plan: monitor (4) Hypertension: Code(s): I10 - Essential (primary) hypertension Status: Acute Assessment and Plan: continue current regimen (5) Orthostatic hypotension: Code(s): I95.1 - Orthostatic hypotension Status: Acute Assessment and Plan: Monitor (6) End-stage renal disease on peritoneal dialysis: Code(s): N18.6 - End stage renal disease; Z99.2 - Dependence on renal dialysis Status: Acute (7) Adrenal insufficiency: Code(s): E27.40 - Unspecified adrenocortical insufficiency Status: Acute (8) Gastroesophageal reflux disease: Code(s): K21.9 - Gastro-esophageal reflux disease without esophagitis Status: Acute Plan The patient presented to the emergency department from home for evaluation of sharp and shooting periumbilical abdominal pain, nausea, and vomiting. She now has dry heaves only. She also reports not having a bowel movement since last Wednesday. Vital signs were stable on arrival. Her white blood cell count was elevated 18.1. A CT of the abdomen and pelvis showed no acute findings. At this time she is being admitted to the floor on empiric antibiotics for possible SBP; there is no dialysis nurse available today to obtain dialysate fluid unfortunately so that will have to wait until tomorrow. she looks dry on exam and by labs and she will be cautiously fluid rehydrated overnight with close monitoring of volume status. Sodium and chloride should improve with normal saline. Potassium will be replaced. She is on 2.5 milligrams of prednisone daily for adrenal insufficiency and her electrolytes will be monitored closely. Dr. Pfeiffer has been consulted for peritoneal dialysis orders and his input is appreciated. blood pressure was over 200 systolic on arrival but has improved. Patient states that she was taken off of her antihypertensives in the last couple of months and she in fact is having issues with orthostatic hypotension and she is now on midodrine. Her blood pressures will be monitored frequently. The rest of her home medications will be reviewed and resumed as appropriate. Subjective Date/time seen: 04/27/22 11:07 still complaining of gas and abdominal cramping. She feels like this is constipation. Exam Narrative: General: Chronically ill, nontoxic-appearing female sitting up in bed. Weight: 85 kilograms. BMI: 33.2. HEENT: PERRL, EOMI. Sclera anicteric. Dry mucous membranes fair Neck: Supple. Respiratory: Lungs are clear to auscultation bilaterally. Cardiovascular: Regular rate and rhythm with S1-S2. Gastrointestinal: Abdomen is soft, nontender, and nondistended with positive bowel sounds. It should be noted that she received IV morphine not long prior to my exam. No guarding or rebound tenderness. Peritoneal dialysis catheter in the left mid quadrant is clean, dry, and intact. Skin: Warm and dry. Extremities: No cyanosis, clubbing, or edema. Radial and pedal pulses intact. Neurological: Alert. Cranial nerves 2-12 are grossly intact. No gross focal deficits to casual conversation. Psychiatric: Pleasant and cooperative with normal mood and affect. Judgment and insight intact. Objective Data Vital Signs Vital Signs: Vital Signs - 24 hr 04/26/22 12:00 04/26/22 14:40 04/26/22 19:46 Temperature 97.7 F 98 F 98.0 F Pul
[2022-04-27] MEDS: polyethylene glycoL 3350 17 GM POWD.PACK PO (11:31)
[2022-04-27] MEDS: CALCIUM ACETATE 667 MG TABLET PO (11:32)
[2022-04-27] MEDS: ONDANSETRON INJ 4 MG/2 ML VIAL IV PUSH (12:33)
[2022-04-27] MEDS: DICYCLOMINE HCL 10 MG CAPSULE 20 MG PO ×2 (12:36→20:44)
--- NOTE | 2022-04-27 14:49 | PM.PNNEP ---
Progress Note: A&P Assessment and Plan (1) End-stage renal disease on peritoneal dialysis: Code(s): N18.6 - End stage renal disease; Z99.2 - Dependence on renal dialysis Status: Acute Assessment and Plan: due to reflux nephropathy s/p failed transplant continue nightly CCPD follow electrolytes, volume status, and clearance (2) Peritonitis: Code(s): K65.9 - Peritonitis, unspecified Status: Acute Assessment and Plan: PD flud cell count quite suggestive follow culture data on antibiotics did receive antibiotics BEFORE PD fluid sample was collected (which may skew PD fluid culture results) (3) Orthostatic hypotension: Code(s): I95.1 - Orthostatic hypotension Status: Acute Assessment and Plan: chronically runs low BP medications with holding parameters (4) Erythropoietin deficiency anemia: Code(s): D63.1 - Anemia in chronic kidney disease Status: Chronic Assessment and Plan: due to ESRD no need for Epogen currently (5) Renal osteodystrophy: Code(s): N25.0 - Renal osteodystrophy Status: Chronic Assessment and Plan: follow calcium and phosphorus on binders Will continue to follow. Subjective Date/time seen: 04/27/22 14:49 Chart reviewed - assuming care from Dr. Pfeiffer; tolerated peritoneal dialysis treatment last night without any issues or problems; still with some abdominal pain but unclear if it is constipation, gas, or suspected peritonitis. Exam Narrative: General: WD/WN female in NAD Heart: normal S1 and S2; no rub Lungs: clear to auscultation Abdomen: soft, nontender, nondistended, positive bowel sounds Extremities: no cyanosis or clubbing; no edema Skin: warm and dry Objective Data Vital Signs Vital Signs: Vital Signs Temp Pulse Resp BP Pulse Ox O2 Del Method 04/27/22 14:00 37.0 C 91 16 136/76 99 04/27/22 09:19 18 93 Room Air 04/27/22 09:43 93 Room Air 04/27/22 03:47 36.6 C 91 18 120/70 93 04/26/22 23:16 36.6 C 60 17 144/80 H 94 04/26/22 20:00 74 16 100 Room Air 04/26/22 19:52 36.1 C L 74 16 144/66 H 100 04/26/22 19:48 36.7 C 77 14 119/65 04/26/22 19:46 36.7 C 77 14 119/65 Room Air Intake/Output Intake/Output: Intake & Output 04/24/22 04/25/22 04/26/22 04/27/22 23:59 23:59 23:59 23:59 Intake Total 300 1370 1040 Output Total -257 0 Balance 300 1627 1040 Meds/Results Medications: Active Medications Generic Name Dose Route Start Last Admin Trade Name Freq PRN Reason Stop Dose Admin Alprazolam 0.5 mg 04/26/22 21:00 04/27/22 01:14 Alprazolam (*Crx) 0.5 Mg Tablet PO Not Given HS JUDITH Calcium Acetate 667 mg 04/26/22 12:00 04/27/22 16:48 Calcium Acetate 667 Mg Tablet PO Not Given TIDWM JUDITH Dicyclomine HCl 20 mg 04/27/22 11:09 04/27/22 12:36 Dicyclomine Hcl 10 Mg Capsule PO 20 mg QID PRN Administration Abdominal Cramping Fluticasone Propionate 2 spray 04/26/22 09:00 04/27/22 09:19 Fluticasone Propionate 0.05% Na Spr 16 Gm Btl (*Bkc) NASAL 2 spray DAILY JUDITH Administration Heparin Sodium (Porcine) 5,000 units 04/25/22 21:00 04/27/22 09:19 Heparin Sodium 5,000 Units/Ml Vial SUB-Q 5,000 units Q12HR JUDITH Administration Ceftazidime 0.5 gm/ Dextrose 50 mls @ 100 mls/hr 04/26/22 17:00 04/27/22 17:23 IVPB Infused Q24H JUDITH Infusion Lactulose 20 gm 04/26/22 15:26 04/26/22 15:37 Lactulose 20 Gm/30 Ml Udc PO 20 gm QAM PRN Administration Constipation Metoprolol Succinate 25 mg 04/26/22 21:00 04/27/22 01:14 Metoprolol Succinate Ext Rel 25 Mg Tabcr PO Not Given HS JUDITH Morphine Sulfate 2 mg 04/25/22 22:34 04/26/22 07:11 Morphine Sulfate (*Crx) 2 Mg/Ml Inj IV PUSH 2 mg Q4H PRN Administration Pain Rated 7-10 Ondansetron HCl 4 mg 04/25/22 15:07 04/27/22 12:33 Ondansetron Inj 4 Mg/2
[2022-04-27] MEDS: SIMETHICONE 80 MG TAB.CHEW PO (20:43)
[2022-04-27] MEDS: ALPRAZolam (*CRX) 0.5 MG TABLET PO (20:43)
[2022-04-27] MEDS: predniSONE 2.5 MG TABLET PO (20:43)
[2022-04-27] MEDS: VENLAFAXINE HCL XR 75 MG CAP.ER.24H 150 MG PO (20:44)
[2022-04-27] MEDS: METOPROLOL SUCCINATE EXT REL 25 MG TABCR PO (20:44)
--- NOTE | 2022-04-27 21:50 | PC.NURSE ---
2049 no dialysis here for peritoneal dialysis treatment. paged Branden. return call stated that the nurse is ill, no back up on-call nurse. they will inform dr. jackman and patient will receive treatment in am and pm to catch up. patient informed.
--- NOTE | 2022-04-27 22:16 | PC.NURSE ---
dialysis nurse on floor, some confusion to what happened, but patient will go onto PD tonight, they are informing dr. yoo.
[2022-04-28] VITALS (12 sets, daily range): BP systolic 100–154; BP diastolic 56–92; PULSE 74–94; RESP 16–21; TEMP 35.6–36.7; O2SAT 94–100
[2022-04-28 02:14] LABS: Appearance Peritoneal Fluid Hazy (Clear); Color Peritoneal Fluid Colorless (Colorless); Nucleated Cells Peritoneal Flu 1675 /uL (0-500); RBC Peritoneal Fluid 0 /uL (0-100000); Source Peritoneal Fluid Peritoneal Fluid
[2022-04-28 02:19] LABS: Neutrophils Peritoneal Fluid 74 % (0-25)
[2022-04-28 02:20] LABS: Lymphocytes Peritoneal Fluid 26 %
[2022-04-28] MEDS: SIMETHICONE 80 MG TAB.CHEW PO ×4 (08:05→21:55)
[2022-04-28] MEDS: PANTOPRAZOLE 40 MG TABLET PO ×2 (08:05→21:55)
[2022-04-28] MEDS: HEPARIN SODIUM 5,000 UNITS/ML VIAL 5000 UNITS SUB-Q ×2 (08:06→21:56)
[2022-04-28] MEDS: FLUTICASONE PROPIONATE 0.05% NA SPR 16 GM BTL (*BKC) 2 SPRAY NASAL (08:06)
[2022-04-28 08:41] LABS: Basophils Percent Auto 0.4 % (0.2-1.2); Eosinophils Absolute Auto 0.1 K/mm3 (0-0.3); Eosinophils Percent Auto 0.8 % (0-4.4); Hematocrit 31.8 % (37.0-47.0); Hemoglobin 10.9 g/dL (12.0-15.0); Immature Granulocyte Absolute 0.05 K/mm3 (0.00-0.031); Immature Granulocyte Percent A 0.5 % (0-0.5); Lymphocytes Percent Auto 16.7 % (18.3-44.2); Mean Corpuscular HGB Conc 34.3 g/dl (32-36); Mean Corpuscular Hemoglobin 31.1 pg (26-34); Mean Corpuscular Volume 90.6 fl (80-100); Monocytes Absolute Auto 0.8 K/mm3 (0.1-0.6); Monocytes Percent Auto 7.9 % (2.6-8.5); Neutrophils Absolute Auto 7.5 K/mm3 (1.3-6.7); Neutrophils Percent Auto 73.7 % (45.5-73.1); Platelet Count Result 248 k/mm3 (150-375); Red Blood Count 3.51 M/mm3 (4.2-5.4); Red Cell Distribution Width 13.9 % (11.5-14.5); White Blood Count 10.2 K/mm3 (4.5-10.0)
[2022-04-28] MEDS: CALCIUM ACETATE 667 MG TABLET PO ×3 (08:49→17:13)
[2022-04-28 08:55] LABS: Anion Gap 14 mmol/L (8-16); Blood Urea Nitrogen 25 mg/dL (7-17); Calcium 8.4 mg/dL (8.4-10.2); Carbon Dioxide 28 mmol/L (22-30); Chloride 87 mmol/L (98-107); Estimated CRCL calculation 9 ml/min; Estimated Glomerular Filt Rate 6; Glucose 132 mg/dL (65-110); Potassium 3.2 mmol/L (3.4-5.0); Sodium 129 mmol/L (137-145)
--- NOTE | 2022-04-28 10:28 | PM.IMPN ---
Progress Note: A&P Assessment and Plan (1) Abdominal pain: Code(s): R10.9 - Unspecified abdominal pain Status: Acute Assessment and Plan: awaiting cultures from peritoneal fluid. PD fluid suspicious for infection Continue IV antibiotics. Appreciate Nephrology consult. (2) Dehydration: Code(s): E86.0 - Dehydration Status: Acute Assessment and Plan: resolved (3) Electrolyte abnormality: Code(s): E87.8 - Other disorders of electrolyte and fluid balance, not elsewhere classified Status: Acute Assessment and Plan: monitor (4) Hypertension: Code(s): I10 - Essential (primary) hypertension Status: Acute Assessment and Plan: continue current regimen (5) Orthostatic hypotension: Code(s): I95.1 - Orthostatic hypotension Status: Acute Assessment and Plan: Monitor (6) End-stage renal disease on peritoneal dialysis: Code(s): N18.6 - End stage renal disease; Z99.2 - Dependence on renal dialysis Status: Acute Assessment and Plan: (7) Adrenal insufficiency: Code(s): E27.40 - Unspecified adrenocortical insufficiency Status: Acute Assessment and Plan: patient is on prednisone. (8) Gastroesophageal reflux disease: Code(s): K21.9 - Gastro-esophageal reflux disease without esophagitis Status: Acute Assessment and Plan: continue PPI Subjective Date/time seen: 04/28/22 10:28 improvement in abdominal pain. She is also tolerating some food. Not back at baseline yet Exam Narrative: General: Chronically ill, nontoxic-appearing female sitting up in bed. Weight: 85 kilograms. BMI: 33.2. HEENT: PERRL, EOMI. Sclera anicteric. Dry mucous membranes fair Neck: Supple. Respiratory: Lungs are clear to auscultation bilaterally. Cardiovascular: Regular rate and rhythm with S1-S2. Gastrointestinal: Abdomen is soft, nontender, and nondistended with positive bowel sounds. It should be noted that she received IV morphine not long prior to my exam. No guarding or rebound tenderness. Peritoneal dialysis catheter in the left mid quadrant is clean, dry, and intact. Skin: Warm and dry. Extremities: No cyanosis, clubbing, or edema. Radial and pedal pulses intact. Neurological: Alert. Cranial nerves 2-12 are grossly intact. No gross focal deficits to casual conversation. Psychiatric: Pleasant and cooperative with normal mood and affect. Judgment and insight intact. Objective Data Vital Signs Vital Signs: Vital Signs - 24 hr 04/27/22 14:00 04/27/22 20:00 04/27/22 20:29 Temperature 98.6 F 96.9 F L 96.9 F L Pulse Rate 91 100 100 Respiratory Rate 16 18 18 Blood Pressure 136/76 120/66 120/66 Pulse Oximetry 99 98 98 Oxygen Delivery 04/27/22 20:44 04/27/22 20:00 04/27/22 21:40 Temperature Pulse Rate 100 Respiratory Rate Blood Pressure Pulse Oximetry Oxygen Delivery Room Air Room Air 04/28/22 00:00 04/28/22 04:00 04/28/22 04:49 Temperature 97.7 F 96.1 F L 96.1 F L Pulse Rate 94 82 82 Respiratory Rate 18 18 18 Blood Pressure 100/56 L 130/68 130/68 Pulse Oximetry 94 97 97 Oxygen Delivery 04/28/22 08:24 04/28/22 08:00 04/28/22 10:02 Temperature 96.1 F L 97.4 F L Pulse Rate 82 80 Respiratory Rate 18 16 Blood Pressure 130/68 144/77 H Pulse Oximetry 99 Oxygen Delivery Room Air 04/28/22 10:02 04/28/22 10:09 04/28/22 10:09 Temperature 97.4 F L 97.4 F L 97.4 F L Pulse Rate 83 81 80 Respiratory Rate 16 16 16 Blood Pressure 154/92 H 146/85 H 144/77 H Pulse Oximetry 99 99 99 Oxygen Delivery Intake/Output Intake/Output: Intake & Output 04/25/22 04/26/22 04/27/22 04/28/22 23:59 23:59 23:59 23:59 Intake Total 300 1370 1040 190 Output Total -257 0 -908 Balance 300 1627 1040 1098 Meds/Results Medications: Active Medications Generic Name Dose Route Start Last Admin Trade Name Freq PRN Reason Stop Do
--- NOTE | 2022-04-28 12:07 | PM.PNNEP ---
Progress Note: A&P Assessment and Plan (1) End-stage renal disease on peritoneal dialysis: Code(s): N18.6 - End stage renal disease; Z99.2 - Dependence on renal dialysis Status: Acute Assessment and Plan: due to reflux nephropathy s/p failed transplant continue nightly CCPD follow electrolytes, volume status, and clearance (2) Peritonitis: Code(s): K65.9 - Peritonitis, unspecified Status: Acute Assessment and Plan: PD flud cell count quite suggestive follow culture data on antibiotics did receive antibiotics BEFORE PD fluid sample was collected (which may skew PD fluid culture results) (3) Orthostatic hypotension: Code(s): I95.1 - Orthostatic hypotension Status: Acute Assessment and Plan: chronically runs low BP medications with holding parameters (4) Erythropoietin deficiency anemia: Code(s): D63.1 - Anemia in chronic kidney disease Status: Chronic Assessment and Plan: due to ESRD no need for Epogen currently (5) Renal osteodystrophy: Code(s): N25.0 - Renal osteodystrophy Status: Chronic Assessment and Plan: follow calcium and phosphorus on binders Will continue to follow. Subjective Date/time seen: 04/28/22 12:07 Tolerated peritoneal dialysis treatment overnight without any issues or problems; abdominal pain seems to be improving albeit slowly; no other acute concerns voiced at the time of my visit; no events noted earlier this morning. Exam Narrative: General: WD/WN female in NAD Heart: normal S1 and S2; no rub Lungs: clear to auscultation Abdomen: soft, nontender, nondistended, positive bowel sounds Extremities: no cyanosis or clubbing; no edema Skin: warm and intact Objective Data Vital Signs Vital Signs: Vital Signs Temp Pulse Resp BP Pulse Ox O2 Del Method 04/28/22 10:09 36.3 C L 80 16 144/77 H 99 04/28/22 10:09 36.3 C L 81 16 146/85 H 99 04/28/22 10:02 36.3 C L 83 16 154/92 H 99 04/28/22 10:02 36.3 C L 80 16 144/77 H 99 04/28/22 08:00 Room Air 04/28/22 08:24 35.6 C L 82 18 130/68 04/28/22 04:49 35.6 C L 82 18 130/68 97 04/28/22 04:00 35.6 C L 82 18 130/68 97 04/28/22 00:00 36.5 C 94 18 100/56 L 94 04/27/22 21:40 Room Air 04/27/22 20:00 Room Air 04/27/22 20:44 100 04/27/22 20:29 36.1 C L 100 18 120/66 98 04/27/22 20:00 36.1 C L 100 18 120/66 98 04/27/22 14:00 37.0 C 91 16 136/76 99 Intake/Output Intake/Output: Intake & Output 04/25/22 04/26/22 04/27/22 04/28/22 23:59 23:59 23:59 23:59 Intake Total 300 1370 1040 410 Output Total -257 0 -908 Balance 300 1627 1040 1318 Meds/Results Medications: Active Medications Generic Name Dose Route Start Last Admin Trade Name Freq PRN Reason Stop Dose Admin Alprazolam 0.5 mg 04/26/22 21:00 04/27/22 20:43 Alprazolam (*Crx) 0.5 Mg Tablet PO 0.5 mg HS JUDITH Administration Calcium Acetate 667 mg 04/26/22 12:00 04/28/22 12:08 Calcium Acetate 667 Mg Tablet PO 667 mg TIDWM JUDITH Administration Dicyclomine HCl 20 mg 04/27/22 11:09 04/27/22 20:44 Dicyclomine Hcl 10 Mg Capsule PO 20 mg QID PRN Administration Abdominal Cramping Fluticasone Propionate 2 spray 04/26/22 09:00 04/28/22 08:06 Fluticasone Propionate 0.05% Na Spr 16 Gm Btl (*Bkc) NASAL 2 spray DAILY JUDITH Administration Heparin Sodium (Porcine) 5,000 units 04/25/22 21:00 04/28/22 08:06 Heparin Sodium 5,000 Units/Ml Vial SUB-Q 5,000 units Q12HR JUDITH Administration Ceftazidime 0.5 gm/ Dextrose 50 mls @ 100 mls/hr 04/26/22 17:00 04/27/22 17:23 IVPB Infused Q24H JUDITH Infusion Lactulose 20 gm 04/26/22 15:26 09/25/22 15:37 Lactulose 20 Gm/30 Ml Udc PO 20 gm QAM PRN Administration Constipation Metoprolol Succinate 25 mg 04/26/22 21:00 04/27/22 20:44 Metoprolol Succina
[2022-04-28] MEDS: predniSONE 2.5 MG TABLET PO (21:55)
[2022-04-28] MEDS: VENLAFAXINE HCL XR 75 MG CAP.ER.24H 150 MG PO (21:55)
[2022-04-28] MEDS: METOPROLOL SUCCINATE EXT REL 25 MG TABCR PO (21:55)
[2022-04-28] MEDS: ALPRAZolam (*CRX) 0.5 MG TABLET PO (21:56)
[2022-04-29] VITALS (8 sets, daily range): BP systolic 129–174; BP diastolic 58–112; PULSE 73–82; RESP 14–20; TEMP 36.2–36.6; O2SAT 96–99
[2022-04-29 07:17] LABS: Anion Gap 12 mmol/L (8-16); Blood Urea Nitrogen 21 mg/dL (7-17); Calcium 8.7 mg/dL (8.4-10.2); Carbon Dioxide 29 mmol/L (22-30); Chloride 90 mmol/L (98-107); Estimated CRCL calculation 9 ml/min; Estimated Glomerular Filt Rate 6; Glucose 94 mg/dL (65-110); Potassium 2.9 mmol/L (3.4-5.0); Sodium 131 mmol/L (137-145)
[2022-04-29] MEDS: ONDANSETRON INJ 4 MG/2 ML VIAL IV PUSH (09:03)
[2022-04-29] MEDS: CALCIUM ACETATE 667 MG TABLET PO ×3 (09:07→16:41)
[2022-04-29] MEDS: FLUTICASONE PROPIONATE 0.05% NA SPR 16 GM BTL (*BKC) 2 SPRAY NASAL (09:07)
[2022-04-29] MEDS: SIMETHICONE 80 MG TAB.CHEW PO ×4 (09:07→21:21)
[2022-04-29] MEDS: HEPARIN SODIUM 5,000 UNITS/ML VIAL 5000 UNITS SUB-Q ×2 (09:09→21:19)
[2022-04-29] MEDS: PANTOPRAZOLE 40 MG TABLET PO ×2 (09:09→21:20)
[2022-04-29] MEDS: MORPHINE SULFATE (*CRX) 2 MG/ML INJ IV PUSH ×2 (09:19→14:07)
--- NOTE | 2022-04-29 12:20 | ECG_ITS ---
Measurements Intervals [place] Rate: 79 P: 34 WI: 158 QRS: 38 QRSD: 106 T: 29 QT: 411 QTc: 471 Interpretive Statements SINUS RHYTHM ATRIAL PREMATURE COMPLEX INCOMPLETE RIGHT BUNDLE BRANCH BLOCK NONSPECIFIC ST & T-WAVE ABNORMALITY- ANTEROLATERAL LEADS BASELINE ARTIFACT- V6 BORDERLINE ECG COMPARED TO ECG 08/08/2019 13:30:[address] & T-WAVE ABNORMALITY- ANTEROLATERAL LEADS NOW PRESENT Electronically Signed On 04-29-2022 14:24:00 CDT by Grabiel Bosch D.O.
--- NOTE | 2022-04-29 12:23 | PM.PNNEP ---
Progress Note: A&P Assessment and Plan (1) End-stage renal disease on peritoneal dialysis: Code(s): N18.6 - End stage renal disease; Z99.2 - Dependence on renal dialysis Status: Acute Assessment and Plan: due to reflux nephropathy s/p failed transplant continue nightly CCPD replete K+ as needed follow electrolytes, volume status, and clearance (2) Peritonitis: Code(s): K65.9 - Peritonitis, unspecified Status: Acute Assessment and Plan: PD flud cell count quite suggestive follow culture data on antibiotics did receive antibiotics BEFORE PD fluid sample was collected (which may skew PD fluid culture results) repeat PD fluid cell count and culture (3) Orthostatic hypotension: Code(s): I95.1 - Orthostatic hypotension Status: Acute Assessment and Plan: chronically runs low BP medications with holding parameters (4) Erythropoietin deficiency anemia: Code(s): D63.1 - Anemia in chronic kidney disease Status: Chronic Assessment and Plan: due to ESRD no need for Epogen currently (5) Renal osteodystrophy: Code(s): N25.0 - Renal osteodystrophy Status: Chronic Assessment and Plan: follow calcium and phosphorus on binders Will continue to follow. Subjective Date/time seen: 04/29/22 12:23 Tolerated peritoneal dialysis treatment overnight without any issues or problems; abdominal pain seemed better yesterday but a bit worse today (however, she associates the pain with eating food); no other acute events overnight or earlier this AM. Exam Narrative: General: WD/WN female in NAD Heart: normal S1 and S2; no rub Lungs: clear to auscultation Abdomen: soft, nontender, nondistended, positive bowel sounds Extremities: no cyanosis or clubbing; no edema Skin: no rash or nodules Objective Data Vital Signs Vital Signs: Vital Signs Temp Pulse Resp BP Pulse Ox O2 Del Method 04/29/22 08:00 Room Air 04/29/22 09:20 36.4 C 82 16 165/112 H 97 04/29/22 06:00 36.2 C L 78 20 147/58 H 98 04/29/22 07:21 36.3 C L 78 20 129/73 04/29/22 03:00 36.3 C L 78 20 129/73 99 04/28/22 23:47 36.2 C L 80 21 H 153/87 H 100 04/28/22 23:00 153/87 H 04/28/22 22:00 36.4 C 80 18 100 04/28/22 21:55 80 Intake/Output Intake/Output: Intake & Output 04/26/22 04/27/22 04/28/22 04/29/22 23:59 23:59 23:59 23:59 Intake Total 1370 1040 1290 1080 Output Total -257 0 -908 2932 Balance 1627 1040 2198 -1852 Meds/Results Medications: Active Medications Generic Name Dose Route Start Last Admin Trade Name Freq PRN Reason Stop Dose Admin Alprazolam 0.5 mg 04/26/22 21:00 04/28/22 21:56 Alprazolam (*Crx) 0.5 Mg Tablet PO 0.5 mg HS JUDITH Administration Calcium Acetate 667 mg 04/26/22 12:00 04/29/22 16:41 Calcium Acetate 667 Mg Tablet PO 667 mg TIDWM JUDITH Administration Dicyclomine HCl 20 mg 04/27/22 11:09 04/27/22 20:44 Dicyclomine Hcl 10 Mg Capsule PO 20 mg QID PRN Administration Abdominal Cramping Fluticasone Propionate 2 spray 04/26/22 09:00 04/29/22 09:07 Fluticasone Propionate 0.05% Na Spr 16 Gm Btl (*Bkc) NASAL 2 spray DAILY JUDITH Administration Heparin Sodium (Porcine) 5,000 units 04/25/22 21:00 04/29/22 09:09 Heparin Sodium 5,000 Units/Ml Vial SUB-Q 5,000 units Q12HR JUDITH Administration Ceftazidime 0.5 gm/ Dextrose 50 mls @ 100 mls/hr 04/26/22 17:00 04/29/22 16:41 IVPB 100 mls/hr Q24H JUDITH Administration Lactulose 20 gm 04/26/22 15:26 04/26/22 15:37 Lactulose 20 Gm/30 Ml Udc PO 20 gm QAM PRN Administration Constipation Metoprolol Succinate 25 mg 04/26/22 21:00 04/28/22 21:55 Metoprolol Succinate Ext Rel 25 Mg Tabcr PO 25 mg HS JUDITH Administration Morphine Sulfate 2 mg 04/25/22 22:34 04/29/22 14:07 Morphine Sulfate (*Crx) 2 Mg/Ml Inj IV PUSH 2 mg Q
--- NOTE | 2022-04-29 17:15 | PM.IMPN ---
Progress Note: A&P Assessment and Plan (1) Peritonitis: Code(s): K65.9 - Peritonitis, unspecified Status: Acute Assessment and Plan: Peritoneal fluid was cloudy with 2287 nucleated cells a majority of which were neutrophils. Blood cultures no growth to date. Peritoneal cultures no growth to date. Remains on ceftazidime. Still having abdominal pain. Could be constipation related. Consider repeat CT scan if this does not improve. (2) Electrolyte abnormality: Code(s): E87.8 - Other disorders of electrolyte and fluid balance, not elsewhere classified Status: Acute Assessment and Plan: Electrolytes noted. Will defer to Nephrology about adjusting her dialysate. Continue to monitor. (3) Hypertension: Code(s): I10 - Essential (primary) hypertension Status: Acute Assessment and Plan: Patient's blood pressure was reviewed on 04/29 Blood pressure remains Poorly controlled. Continue Toprol. May need to have higher blood pressure at times while supine given her history of orthostatic hypotension. Will continue current medications. (4) Orthostatic hypotension: Code(s): I95.1 - Orthostatic hypotension Status: Acute Assessment and Plan: Stable. BP stable yesterday with orthostatics. Continue to monitor. (5) End-stage renal disease on peritoneal dialysis: Code(s): N18.6 - End stage renal disease; Z99.2 - Dependence on renal dialysis Status: Acute Assessment and Plan: Patient has end-stage renal disease on peritoneal dialysis. She is tolerating this well. Nephrology following. (6) Adrenal insufficiency: Code(s): E27.40 - Unspecified adrenocortical insufficiency Status: Acute Assessment and Plan: Blood pressure stable. Continue prednisone. No need for stress dose steroids at this time. (7) Dehydration: Code(s): E86.0 - Dehydration Status: Acute Assessment and Plan: resolved. Patient is eating better. Subjective Date/time seen: 04/29/22 17:15 Interval history: 51yo female with ESRD and HTN here for abdominal pain. Assuming care. Chart reviewed. Patient is eating better. She has noted that as she eats better, she has noted increasing left upper quadrant pain. This pain is pleuritic. Radiates to her left shoulder. Associated with some nausea but no vomiting. No bowel movement for 3 days. Passing flatus. Does feel bloated. She denies feeling constipated. She denies chest pain. Exam Narrative: AF 98.0 174/90 76 14 96% ra Gen - NARD lying almost flat in bed Chest - CTA bilaterally, nml RR CV - RRR S1/S2 Abd - mild diffuse abdominal pain. No guarding. Pain is not localized. PD cath site clean and dry Ext - No pedal edema Psych - Nml mood and affect Skin - Warm and dry Objective Data Vital Signs Vital Signs: Vital Signs - 24 hr 04/28/22 21:55 04/28/22 22:00 04/28/22 23:00 Temperature 97.6 F Pulse Rate 80 80 Respiratory Rate 18 Blood Pressure 153/87 H Pulse Oximetry 100 Oxygen Delivery 04/28/22 23:47 04/29/22 03:00 04/29/22 07:21 Temperature 97.1 F L 97.4 F L 97.4 F L Pulse Rate 80 78 78 Respiratory Rate 21 H 20 20 Blood Pressure 153/87 H 129/73 129/73 Pulse Oximetry 100 99 Oxygen Delivery 04/29/22 06:00 04/29/22 09:20 04/29/22 08:00 Temperature 97.2 F L 97.6 F Pulse Rate 78 82 Respiratory Rate 20 16 Blood Pressure 147/58 H 165/112 H Pulse Oximetry 98 97 Oxygen Delivery Room Air 04/29/22 13:48 Temperature 98 F Pulse Rate 76 Respiratory Rate 14 Blood Pressure 174/90 H Pulse Oximetry 96 Oxygen Delivery Intake/Output Intake/Output: Intake & Output 04/26/22 04/27/22 04/28/22 04/29/22 23:59 23:59 23:59 23:59 Intake Total 1370 1040 1290 1080 Output Total -257 0 -908 2932 Balance 1627 1040 2198 -9342 Meds/Results Medications: Active Medications Generic Name Dose Route
[2022-04-29] MEDS: polyethylene glycoL 3350 17 GM POWD.PACK PO (18:10)
[2022-04-29] MEDS: ALPRAZolam (*CRX) 0.5 MG TABLET PO (21:19)
[2022-04-29] MEDS: METOPROLOL SUCCINATE EXT REL 25 MG TABCR PO (21:20)
[2022-04-29] MEDS: predniSONE 2.5 MG TABLET PO (21:21)
[2022-04-29] MEDS: VENLAFAXINE HCL XR 75 MG CAP.ER.24H 150 MG PO (21:21)
[2022-04-30 05:01] LABS: Basophils Absolute Auto 0.1 K/mm3 (0.0-0.1); Basophils Percent Auto 0.7 % (0.2-1.2); Eosinophils Absolute Auto 0.2 K/mm3 (0-0.3); Hematocrit 33.3 % (37.0-47.0); Hemoglobin 11.1 g/dL (12.0-15.0); Immature Granulocyte Absolute 0.04 K/mm3 (0.00-0.031); Immature Granulocyte Percent A 0.4 % (0-0.5); Lymphocytes Absolute Auto 2.27 K/mm3 (0.9-3.2); Lymphocytes Percent Auto 23.1 % (18.3-44.2); Mean Corpuscular HGB Conc 33.3 g/dl (32-36); Mean Corpuscular Hemoglobin 30.6 pg (26-34); Mean Corpuscular Volume 91.7 fl (80-100); Mean Platelet Volume 11.4 fl (7.4-10.4); Monocytes Absolute Auto 0.7 K/mm3 (0.1-0.6); Neutrophils Absolute Auto 6.6 K/mm3 (1.3-6.7); Neutrophils Percent Auto 66.8 % (45.5-73.1); Platelet Count Result 299 k/mm3 (150-375); Red Blood Count 3.63 M/mm3 (4.2-5.4); Red Cell Distribution Width 13.8 % (11.5-14.5); White Blood Count 9.8 K/mm3 (4.5-10.0)
[2022-04-30 05:40] LABS: Anion Gap 13 mmol/L (8-16); Blood Urea Nitrogen 24 mg/dL (7-17); Calcium 8.5 mg/dL (8.4-10.2); Carbon Dioxide 30 mmol/L (22-30); Chloride 89 mmol/L (98-107); Estimated CRCL calculation 9 ml/min; Estimated Glomerular Filt Rate 6; Glucose 149 mg/dL (65-110); Magnesium 1.5 mg/dL (1.6-2.3); Phosphorus 3.6 mg/dL (2.5-4.5); Potassium 2.8 mmol/L (3.4-5.0); Sodium 132 mmol/L (137-145)
[2022-04-30] MEDS: POTASSIUM CHLORIDE 20 MEQ TABLET 40 MEQ PO ×2 (06:02→09:16)
[2022-04-30 06:25] VITALS: BP 112/62; PULSE 76; RESP 20; TEMP 36.7; O2SAT 98
[2022-04-30] MEDS: PANTOPRAZOLE 40 MG TABLET PO ×2 (09:17→20:31)
[2022-04-30] MEDS: CALCIUM ACETATE 667 MG TABLET PO ×3 (09:17→16:41)
[2022-04-30] MEDS: HEPARIN SODIUM 5,000 UNITS/ML VIAL 5000 UNITS SUB-Q ×2 (09:17→20:29)
[2022-04-30] MEDS: SIMETHICONE 80 MG TAB.CHEW PO ×4 (09:17→20:31)
[2022-04-30] MEDS: FLUTICASONE PROPIONATE 0.05% NA SPR 16 GM BTL (*BKC) 2 SPRAY NASAL (09:17)
[2022-04-30] MEDS: MAGNESIUM SULF 2 GM/WATER 50ML 2 GM/50 ML BAG IVPB (09:18)
--- NOTE | 2022-04-30 10:55 | P.PNNP_ITS ---
Progress Note: A&P Assessment and Plan (1) End-stage renal disease on peritoneal dialysis: Code(s): N18.6 - End stage renal disease; Z99.2 - Dependence on renal dialysis Status: Acute Assessment and Plan: * due to reflux nephropathy * s/p failed transplant * continue nightly CCPD * follow electrolytes, volume status, and clearance (2) Peritonitis: Code(s): K65.9 - Peritonitis, unspecified Status: Acute Assessment and Plan: * PD flud cell count quite suggestive * follow culture data - PD fluid and blood cultures negative to date` * on antibiotics * did receive antibiotics BEFORE PD fluid sample was collected (which may skew PD fluid culture results) * repeat PD fluid cell count and culture pending (3) Hypokalemia: Code(s): E87.6 - Hypokalemia Status: Acute Assessment and Plan: * suspect due to poor oral intake and dialysis * low magnesium also playing a role * replete magnesium and K+ as needed (4) Erythropoietin deficiency anemia: Code(s): D63.1 - Anemia in chronic kidney disease Status: Chronic Assessment and Plan: * due to ESRD * no need for Epogen currently * follow H/H (5) Renal osteodystrophy: Code(s): N25.0 - Renal osteodystrophy Status: Chronic Assessment and Plan: * follow calcium and phosphorus * on binders Will continue to follow. Subjective Date/time seen: 04/30/22 10:55 Tolerated peritoneal dialysis treatment overnight without any issues or problems; still has some abdominal pain but it is tolerable. No other acute issues or problems voiced at this time. Exam Narrative: General: WD/WN female in NAD Heart: normal S1 and S2; no rub Lungs: clear to auscultation Abdomen: soft, nontender, nondistended, positive bowel sounds Extremities: no cyanosis or clubbing; no edema Skin: warm and dry Objective Data Vital Signs Vital Signs: Vital Signs Temp Pulse Resp BP Pulse Ox O2 Del Method 04/30/22 08:00 Room Air 04/30/22 06:25 36.7 C 76 20 112/62 98 04/29/22 21:20 76 04/29/22 21:18 36.6 C 73 20 148/82 H 99 04/29/22 18:36 36.6 C 76 14 174/90 H Room Air 04/29/22 13:48 36.6 C 76 14 174/90 H 96 Intake/Output Intake/Output: Intake & Output 04/27/22 04/28/22 04/29/22 04/30/22 23:59 23:59 23:59 23:59 Intake Total 1040 1290 1250 460 Output Total 0 -908 2932 1264 Balance 1040 1961 -0056 -771 Meds/Results Medications: Active Medications Generic Name Dose Route Start Last Admin Trade Name Freq PRN Reason Stop Dose Admin Alprazolam 0.5 mg 04/26/22 21:00 04/29/22 21:19 Alprazolam (*Crx) 0.5 Mg Tablet PO 0.5 mg HS JUDITH Administration Calcium Acetate 667 mg 04/26/22 12:00 04/30/22 09:17 Calcium Acetate 667 Mg Tablet PO 667 mg TIDWM JUDITH Administration Dicyclomine HCl 20 mg 04/27/22 11:09 04/27/22 20:44 Dicyclomine Hcl 10 Mg Capsule PO 20 mg QID PRN Administration Abdominal Cramping Fluticasone Propionate 2 spray 04/26/22 09:00 04/30/22 09:17 Fluticasone Propionate 0.05% Na Spr 16 Gm Btl (*Bkc) NASAL 2 s
--- NOTE | 2022-04-30 10:55 | PM.PNNEP ---
Progress Note: A&P Assessment and Plan (1) End-stage renal disease on peritoneal dialysis: Code(s): N18.6 - End stage renal disease; Z99.2 - Dependence on renal dialysis Status: Acute Assessment and Plan: due to reflux nephropathy s/p failed transplant continue nightly CCPD follow electrolytes, volume status, and clearance (2) Peritonitis: Code(s): K65.9 - Peritonitis, unspecified Status: Acute Assessment and Plan: PD flud cell count quite suggestive follow culture data - PD fluid and blood cultures negative to date` on antibiotics did receive antibiotics BEFORE PD fluid sample was collected (which may skew PD fluid culture results) repeat PD fluid cell count and culture pending (3) Hypokalemia: Code(s): E87.6 - Hypokalemia Status: Acute Assessment and Plan: suspect due to poor oral intake and dialysis low magnesium also playing a role replete magnesium and K+ as needed (4) Erythropoietin deficiency anemia: Code(s): D63.1 - Anemia in chronic kidney disease Status: Chronic Assessment and Plan: due to ESRD no need for Epogen currently follow H/H (5) Renal osteodystrophy: Code(s): N25.0 - Renal osteodystrophy Status: Chronic Assessment and Plan: follow calcium and phosphorus on binders Will continue to follow. Subjective Date/time seen: 04/30/22 10:55 Tolerated peritoneal dialysis treatment overnight without any issues or problems; still has some abdominal pain but it is tolerable. No other acute issues or problems voiced at this time. Exam Narrative: General: WD/WN female in NAD Heart: normal S1 and S2; no rub Lungs: clear to auscultation Abdomen: soft, nontender, nondistended, positive bowel sounds Extremities: no cyanosis or clubbing; no edema Skin: warm and dry Objective Data Vital Signs Vital Signs: Vital Signs Temp Pulse Resp BP Pulse Ox O2 Del Method 04/30/22 08:00 Room Air 04/30/22 06:25 36.7 C 76 20 112/62 98 04/29/22 21:20 76 04/29/22 21:18 36.6 C 73 20 148/82 H 99 04/29/22 18:36 36.6 C 76 14 174/90 H Room Air 04/29/22 13:48 36.6 C 76 14 174/90 H 96 Intake/Output Intake/Output: Intake & Output 04/27/22 04/28/22 04/29/22 04/30/22 23:59 23:59 23:59 23:59 Intake Total 1040 1290 1250 460 Output Total 0 -908 2932 1264 Balance 1040 8147 -5478 -774 Meds/Results Medications: Active Medications Generic Name Dose Route Start Last Admin Trade Name Freq PRN Reason Stop Dose Admin Alprazolam 0.5 mg 04/26/22 21:00 04/29/22 21:19 Alprazolam (*Crx) 0.5 Mg Tablet PO 0.5 mg HS JUDITH Administration Calcium Acetate 667 mg 04/26/22 12:00 04/30/22 09:17 Calcium Acetate 667 Mg Tablet PO 667 mg TIDWM JUDITH Administration Dicyclomine HCl 20 mg 04/27/22 11:09 04/27/22 20:44 Dicyclomine Hcl 10 Mg Capsule PO 20 mg QID PRN Administration Abdominal Cramping Fluticasone Propionate 2 spray 04/26/22 09:00 04/30/22 09:17 Fluticasone Propionate 0.05% Na Spr 16 Gm Btl (*Bkc) NASAL 2 spray DAILY JUDITH Administration Heparin Sodium (Porcine) 5,000 units 04/25/22 21:00 04/30/22 09:17 Heparin Sodium 5,000 Units/Ml Vial SUB-Q 5,000 units Q12HR JUDITH Administration Ceftazidime 0.5 gm/ Dextrose 50 mls @ 100 mls/hr 04/26/22 17:00 04/29/22 17:11 IVPB Infused Q24H JUDITH Infusion Lactulose 20 gm 04/26/22 15:26 04/26/22 15:37 Lactulose 20 Gm/30 Ml Udc PO 20 gm QAM PRN Administration Constipation Metoprolol Succinate 25 mg 04/26/22 21:00 04/29/22 21:20 Metoprolol Succinate Ext Rel 25 Mg Tabcr PO 25 mg HS JUDITH Administration Morphine Sulfate 2 mg 04/25/22 22:34 04/29/22 14:07 Morphine Sulfate (*Crx) 2 Mg/Ml Inj IV PUSH 2 mg Q4H PRN Administration Pain Rated 7-10 Ondansetron HCl 4 mg 04/25/22 15:07 04/29/22 09:03 Ondansetron I
[2022-04-30 11:45] VITALS: BP 173/98; PULSE 73; RESP 16; TEMP 36.6; O2SAT 100
--- NOTE | 2022-04-30 14:31 | PM.IMPN ---
Progress Note: A&P Assessment and Plan (1) Peritonitis: Code(s): K65.9 - Peritonitis, unspecified Status: Acute Assessment and Plan: Peritoneal fluid was cloudy with 2287 nucleated cells a majority of which were neutrophils. Blood cultures no growth to date. Peritoneal cultures no growth to date. Remains on ceftazidime. Abdominal pain improved today. Continue ceftazidime. Hold off on repeat imaging for now. She was given antibiotics prior to cultures being obtained so not unexpected for her cultures to remain negative. if patient remains stable overnight and abdominal pain continues to improve, will plan discharge tomorrow if okay with Nephrology. (2) Electrolyte abnormality: Code(s): E87.8 - Other disorders of electrolyte and fluid balance, not elsewhere classified Status: Acute Assessment and Plan: Electrolytes noted. Replace Mag and potassium. Will defer to Nephrology about adjusting her dialysate. Continue to monitor. (3) Hypertension: Code(s): I10 - Essential (primary) hypertension Status: Acute Assessment and Plan: Patient's blood pressure was reviewed on 04/30 Blood pressure with wide fluctuations. Continue Toprol. May need to have higher blood pressure at times while supine given her history of orthostatic hypotension. Will continue current medications. (4) Orthostatic hypotension: Code(s): I95.1 - Orthostatic hypotension Status: Acute Assessment and Plan: Stable. BP stable with orthostatics. Continue to monitor. (5) End-stage renal disease on peritoneal dialysis: Code(s): N18.6 - End stage renal disease; Z99.2 - Dependence on renal dialysis Status: Acute Assessment and Plan: Patient has end-stage renal disease on peritoneal dialysis. She is tolerating this well. Nephrology following. (6) Adrenal insufficiency: Code(s): E27.40 - Unspecified adrenocortical insufficiency Status: Acute Assessment and Plan: Blood pressure stable. Continue prednisone. No need for stress dose steroids at this time. (7) Dehydration: Code(s): E86.0 - Dehydration Status: Acute Assessment and Plan: resolved. Patient is eating better. Subjective Date/time seen: 04/30/22 14:31 Interval history: 51yo female with ESRD and HTN here for abdominal pain. abdominal pain is better today. No problems with peritoneal dialysis last night. She denies that the abdominal pain is worse with dialysis. No bowel movements. No nausea or vomiting. She is passing flatus. She is up walking in the room. Exam Narrative: AF 97.8 173/98 73 16 100% ra Gen - NARD lying almost flat in bed Chest - CTA bilaterally, nml RR CV - RRR S1/S2 Abd - Very mild diffuse abdominal pain. Improved from yesterday. Perineal dialysis catheter site is clean, dry and intact Ext - No pedal edema Psych - Nml mood and affect Skin - Warm and dry Objective Data Vital Signs Vital Signs: Vital Signs - 24 hr 04/29/22 18:36 04/29/22 21:18 04/29/22 21:20 Temperature 98 F 97.9 F Pulse Rate 76 73 76 Respiratory Rate 14 20 Blood Pressure 174/90 H 148/82 H Pulse Oximetry 99 Oxygen Delivery Room Air 04/30/22 06:25 04/30/22 08:00 04/30/22 11:45 Temperature 98.1 F 97.8 F Pulse Rate 76 73 Respiratory Rate 20 16 Blood Pressure 112/62 173/98 H Pulse Oximetry 98 100 Oxygen Delivery Room Air Intake/Output Intake/Output: Intake & Output 04/27/22 04/28/22 04/29/22 04/30/22 23:59 23:59 23:59 23:59 Intake Total 1040 1290 1250 570 Output Total 0 -908 2932 1264 Balance 1040 2198 -3472 -694 Meds/Results Medications: Active Medications Generic Name Dose Route Start Last Admin Trade Name Freq PRN Reason Stop Dose Admin Alprazolam 0.5 mg 04/26/22 21:00 04/29/22 21:19 Alprazolam (*Crx) 0.5 Mg Tablet PO 0.5 mg HS JUDITH Administration Calcium Acetate 6
[2022-04-30 15:58] VITALS: BP 164/76; PULSE 71; RESP 18; TEMP 36.6; O2SAT 97
[2022-04-30] MEDS: polyethylene glycoL 3350 17 GM POWD.PACK PO (16:41)
[2022-04-30 20:00] VITALS: PULSE 74; RESP 20; O2SAT 98
[2022-04-30] MEDS: predniSONE 2.5 MG TABLET PO (20:31)
[2022-04-30] MEDS: METOPROLOL SUCCINATE EXT REL 25 MG TABCR PO (20:31)
[2022-04-30] MEDS: VENLAFAXINE HCL XR 75 MG CAP.ER.24H 150 MG PO (20:31)
[2022-04-30] MEDS: ALPRAZolam (*CRX) 0.5 MG TABLET PO (20:31)
[2022-04-30 21:13] VITALS: BP 155/84; PULSE 74; RESP 20; TEMP 36.7; O2SAT 98
[2022-04-30 22:01] VITALS: BP 155/84; PULSE 74; RESP 20; TEMP 36.7; O2SAT 98
[2022-05-01] VITALS (9 sets, daily range): BP systolic 141–163; BP diastolic 69–100; PULSE 67–80; RESP 16–20; TEMP 35.9–36.9; O2SAT 84–100
[2022-05-01] MEDS: FLUTICASONE PROPIONATE 0.05% NA SPR 16 GM BTL (*BKC) 2 SPRAY NASAL (08:27)
[2022-05-01] MEDS: PANTOPRAZOLE 40 MG TABLET PO ×2 (08:27→20:13)
[2022-05-01] MEDS: CALCIUM ACETATE 667 MG TABLET PO ×3 (08:27→16:40)
[2022-05-01] MEDS: HEPARIN SODIUM 5,000 UNITS/ML VIAL 5000 UNITS SUB-Q ×2 (08:27→20:13)
[2022-05-01] MEDS: polyethylene glycoL 3350 17 GM POWD.PACK PO ×2 (08:32→18:57)
[2022-05-01] MEDS: SIMETHICONE 80 MG TAB.CHEW PO (08:33)
[2022-05-01 09:07] LABS: Appearance Peritoneal Fluid Clear (Clear); Color Peritoneal Fluid Colorless (Colorless); Source Peritoneal Fluid Peritoneal Fluid
[2022-05-01 09:08] LABS: Lymphocytes Peritoneal Fluid 29 %; Macrophages Peritoneal Fluid 8 %; Monocytes Peritoneal Fluid 17 %; Neutrophils Peritoneal Fluid 46 % (0-25); Nucleated Cells Peritoneal Flu 103 /uL (0-500); RBC Peritoneal Fluid 0 /uL (0-100000)
[2022-05-01 09:36] LABS: Albumin Level 3.4 g/dL (3.5-5.1); Anion Gap 14 mmol/L (8-16); Blood Urea Nitrogen 24 mg/dL (7-17); Calcium 9.3 mg/dL (8.4-10.2); Carbon Dioxide 29 mmol/L (22-30); Chloride 93 mmol/L (98-107); Estimated CRCL calculation 9 ml/min; Estimated Glomerular Filt Rate 6; Glucose 84 mg/dL (65-110); Magnesium 2.1 mg/dL (1.6-2.3); Phosphorus 2.7 mg/dL (2.5-4.5); Potassium 4.2 mmol/L (3.4-5.0); Sodium 136 mmol/L (137-145)
--- NOTE | 2022-05-01 12:42 | PM.PNNEP ---
Progress Note: A&P Assessment and Plan (1) End-stage renal disease on peritoneal dialysis: Code(s): N18.6 - End stage renal disease; Z99.2 - Dependence on renal dialysis Status: Acute Assessment and Plan: due to reflux nephropathy s/p failed transplant continue nightly CCPD follow electrolytes, volume status, and clearance (2) Peritonitis: Code(s): K65.9 - Peritonitis, unspecified Status: Acute Assessment and Plan: PD flud cell count quite suggestive PD fluid and blood cultures negative to date did receive antibiotics BEFORE PD fluid sample was collected (which may have skewed PD fluid culture results) repeat PD fluid cell count better will switch to intraperitoneal vancomycin (3) Hypokalemia: Code(s): E87.6 - Hypokalemia Status: Acute Assessment and Plan: doing better suspect due to poor oral intake and dialysis low magnesium also playing a role replete magnesium and K+ as needed (4) Erythropoietin deficiency anemia: Code(s): D63.1 - Anemia in chronic kidney disease Status: Chronic Assessment and Plan: due to ESRD no need for Epogen currently follow H/H (5) Renal osteodystrophy: Code(s): N25.0 - Renal osteodystrophy Status: Chronic Assessment and Plan: follow calcium and phosphorus on binders As noted above, will start intraperitoneal vancomycin (allergic to IV vancomycin, not intraperitoneal vancomycin as confirmed with outpatient dialysis center); discussed case with patient's outpatient peritoneal dialysis nurse as well-- if clinically stable if not better by tomorrow, ok for discharge from renal perspective and she will follow-up with PD nurse for next dose of intraperitoneal vancomycin (would be due on Wednesday or of next week). Discussed case with Dr. Saini. Will continue to follow. Subjective Date/time seen: 05/01/22 12:42 Tolerated peritoneal dialysis treatment overnight without any issues or problems; despite improving PD fluid cell count, she still has mild abdominal pain but is significantly better in comparison to admission; no other events overnight or earlier this morning. Exam Narrative: General: WD/WN female in NAD Heart: normal S1 and S2; no rub Lungs: clear to auscultation Abdomen: soft, nontender, nondistended, positive bowel sounds Extremities: no cyanosis or clubbing; no edema Skin: warm and intact Objective Data Vital Signs Vital Signs: Vital Signs Temp Pulse Resp BP Pulse Ox O2 Del Method 05/01/22 09:55 36.4 C 77 16 142/72 H 100 05/01/22 06:00 36.4 C 71 20 148/88 H 98 05/01/22 01:26 36.8 C 75 20 141/69 H 98 04/30/22 20:00 74 20 98 Room Air 04/30/22 22:01 36.7 C 74 20 155/84 H 98 04/30/22 21:13 36.7 C 74 20 155/84 H 98 04/30/22 15:58 36.6 C 71 18 164/76 H 97 04/30/22 15:58 36.6 C 71 18 164/76 H 97 Intake/Output Intake/Output: Intake & Output 04/28/22 04/29/22 04/30/22 05/01/22 23:59 23:59 23:59 23:59 Intake Total 1290 1250 920 910 Output Total -908 2932 1264 1508 Balance 2198 -1682 -344 -598 Meds/Results Medications: Active Medications Generic Name Dose Route Start Last Admin Trade Name Freq PRN Reason Stop Dose Admin Alprazolam 0.5 mg 04/26/22 21:00 04/30/22 20:31 Alprazolam (*Crx) 0.5 Mg Tablet PO 0.5 mg HS JUDITH Administration Calcium Acetate 667 mg 04/26/22 12:00 05/01/22 12:00 Calcium Acetate 667 Mg Tablet PO 667 mg TIDWM JUDITH Administration Dicyclomine HCl 20 mg 04/27/22 11:09 04/27/22 20:44 Dicyclomine Hcl 10 Mg Capsule PO 20 mg QID PRN Administration Abdominal Cramping Fluticasone Propionate 2 spray 04/26/22 09:00 05/01/22 08:27 Fluticasone Propionate 0.05% Na Spr 16 Gm Btl (*Bkc) NASAL 2 spray DAILY JUDITH Administration Heparin Sodium (Porcine) 5,000 units 04/25/22 21:00 05/01/22 08:27 Hepar
--- NOTE | 2022-05-01 17:32 | PM.IMPN ---
Progress Note: A&P Assessment and Plan (1) Peritonitis: Code(s): K65.9 - Peritonitis, unspecified Status: Acute Assessment and Plan: Peritoneal fluid was cloudy with 2287 nucleated cells a majority of which were neutrophils. Blood cultures no growth to date. Peritoneal cultures no growth to date but was on abx when the culture was drawn. Remains on ceftazidime. Abdominal pain improving clinically. Continue ceftazidime. Pain mostly LUQ and radiates to upper chest but spleen looks normal on imaging. Since abdominal pain is improving, will hold off on repeat imaging for now. Vanco intraperitoneal tonight. If pain stable or better tomorrow, plan discharge. Discussed with nephrology. Advance miralax and suppository once. (2) Electrolyte abnormality: Code(s): E87.8 - Other disorders of electrolyte and fluid balance, not elsewhere classified Status: Acute Assessment and Plan: Electrolytes noted and improved. Continue to monitor. (3) Hypertension: Code(s): I10 - Essential (primary) hypertension Status: Acute Assessment and Plan: Patient's blood pressure was reviewed on 05/01 Blood pressure with wide fluctuations. Continue Toprol. May need to tolerate higher blood pressure at times while supine given her history of orthostatic hypotension. Will continue current medications. (4) Orthostatic hypotension: Code(s): I95.1 - Orthostatic hypotension Status: Acute Assessment and Plan: Stable. BP stable with orthostatics. Continue to monitor. (5) End-stage renal disease on peritoneal dialysis: Code(s): N18.6 - End stage renal disease; Z99.2 - Dependence on renal dialysis Status: Acute Assessment and Plan: Patient has end-stage renal disease on peritoneal dialysis. She is tolerating this well. Nephrology following. (6) Adrenal insufficiency: Code(s): E27.40 - Unspecified adrenocortical insufficiency Status: Acute Assessment and Plan: Blood pressure stable. Continue prednisone. (7) Dehydration: Code(s): E86.0 - Dehydration Status: Acute Assessment and Plan: resolved. Patient is eating better. Subjective Date/time seen: 05/01/22 17:32 Interval history: 51yo female with ESRD and HTN here for abdominal pain. patient rates her abdominal pain 5/10 today but states this is much improved from admission. No issues overnight. No issues with peritoneal dialysis. No bowel movements but still passing flatus. No chest pain but has the abdominal pain that radiates up to the left side of the chest. No shortness of breath. She is walking in the room. Exam Narrative: AF 96.6 146/100 80 17 100% ra Gen - NARD Chest - CTA bilaterally, nml RR CV - RRR S1/S2 Abd - minimal abdominal pain. Perineal dialysis catheter site is clean, dry and intact Ext - No pedal edema Psych - Nml mood and affect Skin - Warm and dry Objective Data Vital Signs Vital Signs: Vital Signs - 24 hr 04/30/22 21:13 04/30/22 22:01 04/30/22 20:00 Temperature 98.1 F 98.1 F Pulse Rate 74 74 74 Respiratory Rate 20 20 20 Blood Pressure 155/84 H 155/84 H Pulse Oximetry 98 98 98 Oxygen Delivery Room Air 05/01/22 01:26 05/01/22 06:00 05/01/22 09:55 Temperature 98.2 F 97.6 F 97.6 F Pulse Rate 75 71 77 Respiratory Rate 20 20 16 Blood Pressure 141/69 H 148/88 H 142/72 H Pulse Oximetry 98 98 100 Oxygen Delivery 05/01/22 13:51 Temperature 96.6 F L Pulse Rate 80 Respiratory Rate 17 Blood Pressure 146/100 H Pulse Oximetry 100 Oxygen Delivery Intake/Output Intake/Output: Intake & Output 04/28/22 04/29/22 04/30/22 05/01/22 23:59 23:59 23:59 23:59 Intake Total 1290 1250 920 960 Output Total -908 2932 1264 1508 Balance 2198 -1682 -344 -548 Meds/Results Medications: Active Medications Generic Name Dose Route Start Last Admin Trade Name Freq PRN Reason Stop
[2022-05-01] MEDS: predniSONE 2.5 MG TABLET PO (20:13)
[2022-05-01] MEDS: ALPRAZolam (*CRX) 0.5 MG TABLET PO (20:13)
[2022-05-01] MEDS: METOPROLOL SUCCINATE EXT REL 25 MG TABCR PO (20:14)
[2022-05-01] MEDS: VENLAFAXINE HCL XR 75 MG CAP.ER.24H 150 MG PO (20:14)
[2022-05-02 05:16] VITALS: BP 124/66; PULSE 61; RESP 17; TEMP 36.6; O2SAT 97
[2022-05-02 08:00] VITALS: PULSE 61; RESP 17; O2SAT 97
[2022-05-02] MEDS: FLUTICASONE PROPIONATE 0.05% NA SPR 16 GM BTL (*BKC) 2 SPRAY NASAL (08:11)
[2022-05-02] MEDS: polyethylene glycoL 3350 17 GM POWD.PACK PO ×2 (08:11→17:47)
[2022-05-02] MEDS: BISACODYL 10 MG SUPPOSITORY RECTAL (08:12)
[2022-05-02] MEDS: HEPARIN SODIUM 5,000 UNITS/ML VIAL 5000 UNITS SUB-Q ×2 (08:12→20:51)
[2022-05-02] MEDS: CALCIUM ACETATE 667 MG TABLET PO ×3 (08:12→17:47)
[2022-05-02] MEDS: PANTOPRAZOLE 40 MG TABLET PO ×2 (08:12→20:51)
--- NOTE | 2022-05-02 10:06 | P.PNNP_ITS ---
Progress Note: A&P Assessment and Plan (1) End-stage renal disease on peritoneal dialysis: Code(s): N18.6 - End stage renal disease; Z99.2 - Dependence on renal dialysis Status: Acute Assessment and Plan: * due to reflux nephropathy * s/p failed transplant * continue nightly CCPD * volume status looks good. * Potassium was good yesterday. (2) Peritonitis: Code(s): K65.9 - Peritonitis, unspecified Status: Acute Assessment and Plan: * PD flud cell count quite suggestive * PD fluid and blood cultures negative to date * did receive antibiotics BEFORE PD fluid sample was collected (which may have skewed PD fluid culture results) * repeat PD fluid cell count better A couple of days later and the most recent test was normal. * She is on intraperitoneal vancomycin. She had a does after the last fill this morning. (3) Hypokalemia: Code(s): E87.6 - Hypokalemia Status: Acute Assessment and Plan: * doing better * Potassium normal yesterday. (4) Erythropoietin deficiency anemia: Code(s): D63.1 - Anemia in chronic kidney disease Status: Chronic Assessment and Plan: * due to ESRD * no need for Epogen currently * Hemoglobin 11.1 today. (5) Renal osteodystrophy: Code(s): N25.0 - Renal osteodystrophy Status: Chronic Assessment and Plan: * Phosphorus was normal yesterday * on binders Subjective Date/time seen: 05/02/22 10:06 Interval history: Tequila still has some residual belly pain but much better than on admission. Fluid is clear. On peritoneal dialysis. Tolerating it well. She was seen at 9:15 a.m. Exam Narrative: General: WD/WN female in NAD Heart: normal S1 and S2; no rub or gallop Lungs: clear to auscultation Abdomen: soft, nontender, nondistended, positive bowel sounds Extremities: no cyanosis or clubbing; no edema Skin: no rash Objective Data Vital Signs Vital Signs: Vital Signs - 24 hr 05/01/22 13:51 05/01/22 18:41 05/01/22 19:48 Temperature 35.9 C L 36.9 C 36.4 C L Pulse Rate 80 71 71 Respiratory Rate 17 17 18 Blood Pressure 146/100 H 163/97 H 153/92 H Pulse Oximetry 100 84 L 98 Oxygen Delivery 05/01/22 20:14 05/01/22 20:00 05/01/22 23:30 Temperature 36.7 C Pulse Rate 70 70 67 Respiratory Rate 18 18 Blood Pressure 145/86 H Pulse Oximetry 98 100 Oxygen Delivery Room Air 05/02/22 05:16 Temperature 36.6 C Pulse Rate 61 Respiratory Rate 17 Blood Pressure 124/66 Pulse Oximetry 97 Oxygen Delivery Intake/Output Intake/Output: Intake & Output 04/29/22 04/30/22 05/01/22 05/02/22 23:59 23:59 23:59 23:59 Intake Total 1036 942 6309 740 Output Total 2932 1264 1508 1122 [facility] -3341 -483 22 -329 Meds/Results Medications: Active Medications Generic Name Dose Route Start Last Admin Trade Name Freq PRN Reason Stop Dose Admin Acetaminophen 650 mg 05/01/22 17:59 Acetaminophen 325 Mg Tablet PO Q6H PRN Mild Pain (1-3) or Fever
--- NOTE | 2022-05-02 10:06 | PM.PNNEP ---
Progress Note: A&P Assessment and Plan (1) End-stage renal disease on peritoneal dialysis: Code(s): N18.6 - End stage renal disease; Z99.2 - Dependence on renal dialysis Status: Acute Assessment and Plan: due to reflux nephropathy s/p failed transplant continue nightly CCPD volume status looks good. Potassium was good yesterday. (2) Peritonitis: Code(s): K65.9 - Peritonitis, unspecified Status: Acute Assessment and Plan: PD flud cell count quite suggestive PD fluid and blood cultures negative to date did receive antibiotics BEFORE PD fluid sample was collected (which may have skewed PD fluid culture results) repeat PD fluid cell count better A couple of days later and the most recent test was normal. She is on intraperitoneal vancomycin. She had a does after the last fill this morning. (3) Hypokalemia: Code(s): E87.6 - Hypokalemia Status: Acute Assessment and Plan: doing better Potassium normal yesterday. (4) Erythropoietin deficiency anemia: Code(s): D63.1 - Anemia in chronic kidney disease Status: Chronic Assessment and Plan: due to ESRD no need for Epogen currently Hemoglobin 11.1 today. (5) Renal osteodystrophy: Code(s): N25.0 - Renal osteodystrophy Status: Chronic Assessment and Plan: Phosphorus was normal yesterday on binders Subjective Date/time seen: 05/02/22 10:06 Interval history: Tequila still has some residual belly pain but much better than on admission. Fluid is clear. On peritoneal dialysis. Tolerating it well. She was seen at 9:15 a.m. Exam Narrative: General: WD/WN female in NAD Heart: normal S1 and S2; no rub or gallop Lungs: clear to auscultation Abdomen: soft, nontender, nondistended, positive bowel sounds Extremities: no cyanosis or clubbing; no edema Skin: no rash Objective Data Vital Signs Vital Signs: Vital Signs - 24 hr 05/01/22 13:51 05/01/22 18:41 05/01/22 19:48 Temperature 35.9 C L 36.9 C 36.4 C L Pulse Rate 80 71 71 Respiratory Rate 17 17 18 Blood Pressure 146/100 H 163/97 H 153/92 H Pulse Oximetry 100 84 L 98 Oxygen Delivery 05/01/22 20:14 05/01/22 20:00 05/01/22 23:30 Temperature 36.7 C Pulse Rate 70 70 67 Respiratory Rate 18 18 Blood Pressure 145/86 H Pulse Oximetry 98 100 Oxygen Delivery Room Air 05/02/22 05:16 Temperature 36.6 C Pulse Rate 61 Respiratory Rate 17 Blood Pressure 124/66 Pulse Oximetry 97 Oxygen Delivery Intake/Output Intake/Output: Intake & Output 04/29/22 04/30/22 05/01/22 05/02/22 23:59 23:59 23:59 23:59 Intake Total 1258 912 9165 740 Output Total 2932 1264 1508 1123 [facility] 1684 -567 22 -452 Meds/Results Medications: Active Medications Generic Name Dose Route Start Last Admin Trade Name Freq PRN Reason Stop Dose Admin Acetaminophen 650 mg 05/01/22 17:59 Acetaminophen 325 Mg Tablet PO Q6H PRN Mild Pain (1-3) or Fever Alprazolam 0.5 mg 04/26/22 21:00 05/01/22 20:13 Alprazolam (*Crx) 0.5 Mg Tablet PO 0.5 mg HS JUDITH Administration Bisacodyl 10 mg 05/02/22 09:00 05/02/22 08:12 Bisacodyl 10 Mg Suppository RECTAL 05/03/22 09:01 10 mg QAM JUDITH Administration Calcium Acetate 667 mg 04/26/22 12:00 05/02/22 08:12 Calcium Acetate 667 Mg Tablet PO 667 mg TIDWM JUDITH Administration Dicyclomine HCl 20 mg 04/27/22 11:09 04/27/22 20:44 Dicyclomine Hcl 10 Mg Capsule PO 20 mg QID PRN Administration Abdominal Cramping Fluticasone Propionate 2 spray 04/26/22 09:00 05/02/22 08:11 Fluticasone Propionate 0.05% Na Spr 16 Gm Btl (*Bkc) NASAL 2 spray DAILY JUDITH Administration Heparin Sodium (Porcine) 5,000 units 04/25/22 21:00 05/02/22 08:12 Heparin Sodium 5,000 Units/Ml Vial SUB-Q 5,000 units Q12HR JUDITH Administration Ceftazidime 0.5 gm/ Dextrose 50 mls @ 100 mls/hr
--- NOTE | 2022-05-02 12:23 | PM.IMPN ---
Progress Note: A&P Assessment and Plan (1) Peritonitis: Code(s): K65.9 - Peritonitis, unspecified Status: Acute Assessment and Plan: Peritoneal fluid was cloudy with 2287 nucleated cells a majority of which were neutrophils. Blood cultures negative. Peritoneal cultures (04/26) no growth to date but was on abx when the culture was drawn. Remains on ceftazidime. Repeat peritoneal fluid with 103 nucleated cells. Abdominal pain improving but still present. WBC normal now. Continue ceftazidime. Pain mostly LUQ and radiates to upper chest but spleen looks normal on imaging. Vanco intraperitoneal started (first dose 05/01/22 at 1830). Continue miralax and suppository. Discussed with nephrology. Concern that the pain is still present despite the duration of treatment. Repeat CT today. (2) Electrolyte abnormality: Code(s): E87.8 - Other disorders of electrolyte and fluid balance, not elsewhere classified Status: Acute Assessment and Plan: Electrolytes noted and improved. Continue to monitor periodically. (3) Hypertension: Code(s): I10 - Essential (primary) hypertension Status: Acute Assessment and Plan: Patient's blood pressure was reviewed on 05/02 Blood pressure more stable with SBP 130-160 mostly. Continue Toprol. May need to tolerate higher blood pressure at times while supine given her history of orthostatic hypotension. Will continue current medications. (4) Orthostatic hypotension: Code(s): I95.1 - Orthostatic hypotension Status: Acute Assessment and Plan: Stable. BP stable with orthostatics. Continue to monitor. (5) End-stage renal disease on peritoneal dialysis: Code(s): N18.6 - End stage renal disease; Z99.2 - Dependence on renal dialysis Status: Acute Assessment and Plan: Patient has end-stage renal disease on peritoneal dialysis. She is tolerating this well. Nephrology following. (6) Adrenal insufficiency: Code(s): E27.40 - Unspecified adrenocortical insufficiency Status: Acute Assessment and Plan: Blood pressure stable. Continue prednisone. (7) Dehydration: Code(s): E86.0 - Dehydration Status: Acute Assessment and Plan: resolved. Patient is eating better. Subjective Date/time seen: 05/02/22 12:23 Interval history: 51yo female with ESRD and HTN here for abdominal pain. Slept well. No change in the abdominal pain. No BM but flatus. No n/v. No further left sided chest pain. Exam Narrative: AF 97.9 124/66 61 17 97% ra Gen - NARD Chest - CTA bilaterally, nml RR CV - RRR S1/S2 Abd - mild diffuse abdominal pain worse in the LUQ. Perineal dialysis catheter site is clean, dry and intact Ext - No pedal edema Psych - Nml mood and affect Skin - Warm and dry Objective Data Vital Signs Vital Signs: Vital Signs - 24 hr 05/01/22 13:51 05/01/22 18:41 05/01/22 19:48 Temperature 96.6 F L 98.4 F 97.5 F L Pulse Rate 80 71 71 Respiratory Rate 17 17 18 Blood Pressure 146/100 H 163/97 H 153/92 H Pulse Oximetry 100 84 L 98 Oxygen Delivery 05/01/22 20:14 05/01/22 20:00 05/01/22 23:30 Temperature 98.0 F Pulse Rate 70 70 67 Respiratory Rate 18 18 Blood Pressure 145/86 H Pulse Oximetry 98 100 Oxygen Delivery Room Air 05/02/22 05:16 05/02/22 08:00 Temperature 97.9 F Pulse Rate 61 61 Respiratory Rate 17 17 Blood Pressure 124/66 Pulse Oximetry 97 97 Oxygen Delivery Room Air Intake/Output Intake/Output: Intake & Output 04/29/22 04/30/22 05/01/22 05/02/22 23:59 23:59 23:59 23:59 Intake Total 7936 502 4534 740 Output Total 2932 1264 1508 1123 [facility]8800 -449 22 -812 Meds/Results Medications: Active Medications Generic Name Dose Route Start Last Admin Trade Name Freq PRN Reason Stop Dose Admin Acetaminophen 650 mg 05/01/22 17:59 Acetaminophen 325 Mg Tablet PO Q6H PRN Mild Pain (1
[2022-05-02 14:03] VITALS: BP 128/77; PULSE 80; RESP 18; TEMP 35.8; O2SAT 97
[2022-05-02 19:54] VITALS: PULSE 80; RESP 18; O2SAT 97
[2022-05-02] MEDS: predniSONE 2.5 MG TABLET PO (20:51)
[2022-05-02] MEDS: VENLAFAXINE HCL XR 75 MG CAP.ER.24H 150 MG PO (20:51)
[2022-05-02] MEDS: ALPRAZolam (*CRX) 0.5 MG TABLET PO (20:51)
[2022-05-02 21:08] VITALS: PULSE 75
[2022-05-02] MEDS: METOPROLOL SUCCINATE EXT REL 25 MG TABCR PO (21:08)
[2022-05-02 21:33] VITALS: BP 150/78; PULSE 75; RESP 17; TEMP 36.7; O2SAT 99
[2022-05-03 05:22] VITALS: BP 132/77; PULSE 69; RESP 17; TEMP 37; O2SAT 98
[2022-05-03 05:28] LABS: Basophils Absolute Auto 0.1 K/mm3 (0.0-0.1); Basophils Percent Auto 0.6 % (0.2-1.2); Eosinophils Absolute Auto 0.1 K/mm3 (0-0.3); Eosinophils Percent Auto 1.2 % (0-4.4); Hematocrit 33.2 % (37.0-47.0); Hemoglobin 10.7 g/dL (12.0-15.0); Immature Granulocyte Absolute 0.17 K/mm3 (0.00-0.031); Immature Granulocyte Percent A 1.5 % (0-0.5); Lymphocytes Absolute Auto 2.47 K/mm3 (0.9-3.2); Lymphocytes Percent Auto 21.6 % (18.3-44.2); Mean Corpuscular HGB Conc 32.2 g/dl (32-36); Mean Corpuscular Volume 96.2 fl (80-100); Mean Platelet Volume 11.6 fl (7.4-10.4); Monocytes Percent Auto 8.8 % (2.6-8.5); Neutrophils Absolute Auto 7.6 K/mm3 (1.3-6.7); Neutrophils Percent Auto 66.3 % (45.5-73.1); Platelet Count Result 293 k/mm3 (150-375); Red Blood Count 3.45 M/mm3 (4.2-5.4); Red Cell Distribution Width 13.9 % (11.5-14.5); White Blood Count 11.5 K/mm3 (4.5-10.0)
[2022-05-03 05:43] LABS: Albumin Level 3.2 g/dL (3.5-5.1); Anion Gap 10 mmol/L (8-16); Blood Urea Nitrogen 36 mg/dL (7-17); Calcium 9.4 mg/dL (8.4-10.2); Carbon Dioxide 26 mmol/L (22-30); Chloride 95 mmol/L (98-107); Estimated CRCL calculation 9 ml/min; Estimated Glomerular Filt Rate 6; Glucose 121 mg/dL (65-110); Phosphorus 2.9 mg/dL (2.5-4.5); Potassium 4.3 mmol/L (3.4-5.0); Sodium 131 mmol/L (137-145)
[2022-05-03] MEDS: polyethylene glycoL 3350 17 GM POWD.PACK PO ×2 (09:16→16:34)
[2022-05-03] MEDS: HEPARIN SODIUM 5,000 UNITS/ML VIAL 5000 UNITS SUB-Q ×2 (09:16→21:49)
[2022-05-03] MEDS: FLUTICASONE PROPIONATE 0.05% NA SPR 16 GM BTL (*BKC) 2 SPRAY NASAL (09:17)
[2022-05-03] MEDS: PANTOPRAZOLE 40 MG TABLET PO ×2 (09:17→21:49)
[2022-05-03] MEDS: CALCIUM ACETATE 667 MG TABLET PO ×3 (09:17→16:34)
--- NOTE | 2022-05-03 10:08 | PM.PNNEP ---
Progress Note: A&P Assessment and Plan (1) End-stage renal disease on peritoneal dialysis: Code(s): N18.6 - End stage renal disease; Z99.2 - Dependence on renal dialysis Status: Acute Assessment and Plan: due to reflux nephropathy s/p failed transplant continue nightly CCPD The patient looks euvolemic Potassium 4.3 today. (2) Peritonitis: Code(s): K65.9 - Peritonitis, unspecified Status: Acute Assessment and Plan: PD flud cell count quite suggestive PD fluid and blood cultures negative to date did receive antibiotics BEFORE PD fluid sample was collected (which may have skewed PD fluid culture results) repeat PD fluid cell count better A couple of days later and the most recent test was normal. She is on intraperitoneal vancomycin. her next dose is due Wednesday. (3) Hypokalemia: Code(s): E87.6 - Hypokalemia Status: Acute Assessment and Plan: doing better Potassium is normal today (4) Erythropoietin deficiency anemia: Code(s): D63.1 - Anemia in chronic kidney disease Status: Chronic Assessment and Plan: due to ESRD no need for Epogen currently Hemoglobin 10.7 today. (5) Renal osteodystrophy: Code(s): N25.0 - Renal osteodystrophy Status: Chronic Assessment and Plan: Phosphorus was normal yesterday on binders Subjective Date/time seen: 05/03/22 10:08 Interval history: Tequila is feeling better today. Still has some residual belly pain dialysis just finishing and the fluid is clear. Exam Narrative: General: WD/WN female in NAD Heart: normal S1 and S2; no rub or gallop Lungs: clear bilaterally Abdomen: soft, nontender, nondistended, positive bowel sounds Extremities: no cyanosis or clubbing; no edema Skin: no rash Or subcu nodules Objective Data Vital Signs Vital Signs: Vital Signs - 24 hr 05/02/22 14:03 05/02/22 19:54 05/02/22 21:08 Temperature 35.8 C L Pulse Rate 80 80 75 Respiratory Rate 18 18 Blood Pressure 128/77 Pulse Oximetry 97 97 Oxygen Delivery Room Air 05/02/22 21:33 05/03/22 05:22 Temperature 36.7 C 37.0 C Pulse Rate 75 69 Respiratory Rate 17 17 Blood Pressure 150/78 H 132/77 Pulse Oximetry 99 98 Oxygen Delivery Intake/Output Intake/Output: Intake & Output 04/30/22 05/01/22 05/02/22 05/03/22 23:59 23:59 23:59 23:59 Intake Total 920 1530 1040 250 Output Total 1264 1508 1123 0 Balance -344 22 -83 250 Meds/Results Medications: Active Medications Generic Name Dose Route Start Last Admin Trade Name Freq PRN Reason Stop Dose Admin Acetaminophen 650 mg 05/01/22 17:59 Acetaminophen 325 Mg Tablet PO Q6H PRN Mild Pain (1-3) or Fever Alprazolam 0.5 mg 04/26/22 21:00 05/02/22 20:51 Alprazolam (*Crx) 0.5 Mg Tablet PO 0.5 mg HS JUDITH Administration Calcium Acetate 667 mg 04/26/22 12:00 05/03/22 09:17 Calcium Acetate 667 Mg Tablet PO 667 mg TIDWM JUDITH Administration Dicyclomine HCl 20 mg 04/27/22 11:09 04/27/22 20:44 Dicyclomine Hcl 10 Mg Capsule PO 20 mg QID PRN Administration Abdominal Cramping Fluticasone Propionate 2 spray 04/26/22 09:00 05/03/22 09:17 Fluticasone Propionate 0.05% Na Spr 16 Gm Btl (*Bkc) NASAL 2 spray DAILY JUDITH Administration Heparin Sodium (Porcine) 5,000 units 04/25/22 21:00 05/03/22 09:16 Heparin Sodium 5,000 Units/Ml Vial SUB-Q 5,000 units Q12HR JUDITH Administration Ceftazidime 0.5 gm/ Dextrose 50 mls @ 100 mls/hr 04/26/22 17:00 05/02/22 18:17 IVPB Infused Q24H JUDITH Infusion Lactulose 20 gm 04/26/22 15:26 04/26/22 15:37 Lactulose 20 Gm/30 Ml Udc PO 20 gm QAM PRN Administration Constipation Metoprolol Succinate 25 mg 04/26/22 21:00 05/02/22 21:08 Metoprolol Succinate Ext Rel 25 Mg Tabcr PO 25 mg HS JUDITH Administration Ondansetron HCl 4 mg 04/25/22 15:07 04/29/22
[2022-05-03] MEDS: BISACODYL 10 MG SUPPOSITORY RECTAL (10:44)
[2022-05-03 14:43] VITALS: BP 145/78; PULSE 73; RESP 18; TEMP 36.2; O2SAT 98
--- NOTE | 2022-05-03 17:25 | PM.IMPN ---
Progress Note: A&P Assessment and Plan (1) Peritonitis: Code(s): K65.9 - Peritonitis, unspecified Status: Acute Assessment and Plan: Peritoneal fluid was cloudy with 2287 nucleated cells a majority of which were neutrophils. Blood cultures negative. Peritoneal cultures (04/26) no growth to date but was on abx when the culture was drawn. Remains on ceftazidime. Repeat peritoneal fluid with 103 nucleated cells. Abdominal pain improving but still present that is probably related to the splenic infarct. She is day 9 of IV abx so will stop. Vanco intraperitoneal started (first dose 05/01/22 at 1830). Discussed with nephrology. Repeat CT with results as mentioned below. Plan for repeat Vanco intraperitoneal Wednesday. Home tomorrow. 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 She is constipated which could be contributing to her pain. She was treated with Miralax and suppositories. One BM yesterday. Continue Miralax with enema once today. We did repeat the CT of the Abd which shows trace ascites and a peripheral, wedge shaped splenic hypodensities probably infarcts. Some evidence this was present on admission. Splenic infarcts associated with hypercoagulable state, embolic from atrial fibrillation, the most likely related to Peritonitis/infection. Endocarditis seems less likely without murmur and negative blood cultures. No symptoms to suggest AFib and she has known source with the peritonitis. Follow off IV abx. (3) Electrolyte abnormality: Code(s): E87.8 - Other disorders of electrolyte and fluid balance, not elsewhere classified Status: Acute Assessment and Plan: Electrolytes noted and improved. Continue to monitor periodically. (4) Hypertension: Code(s): I10 - Essential (primary) hypertension Status: Acute Assessment and Plan: Patient's blood pressure was reviewed on 05/03 Blood pressure more stable with SBP 130-160 mostly. Continue Toprol. May need to tolerate higher blood pressure at times while supine given her history of orthostatic hypotension. Will continue current medications. (5) Orthostatic hypotension: Code(s): I95.1 - Orthostatic hypotension Status: Acute Assessment and Plan: Stable. BP stable with orthostatics. Continue to monitor. (6) End-stage renal disease on peritoneal dialysis: Code(s): N18.6 - End stage renal disease; Z99.2 - Dependence on renal dialysis Status: Acute Assessment and Plan: Patient has end-stage renal disease on peritoneal dialysis. She is tolerating this well. Nephrology following. (7) Adrenal insufficiency: Code(s): E27.40 - Unspecified adrenocortical insufficiency Status: Acute Assessment and Plan: Blood pressure stable. Continue prednisone. (8) Dehydration: Code(s): E86.0 - Dehydration Status: Acute Assessment and Plan: resolved. Patient is eating better. Subjective Date/time seen: 05/03/22 17:26 Interval history: 51yo female with ESRD and HTN here for abdominal pain. No issues overnight. Still with the abd pain but no change (worse in the LUQ) that radiates to the left upper chest. Worse with deep breathing. No n/v. No calf pain. Had BM yesterday. Exam Narrative: AF 97.2 145/78 73 18 98% ra Gen - NARD Chest - CTA bilaterally, nml RR CV - RRR S1/S2 Abd - minimal abdominal pain worse in the LUQ. Perineal dialysis catheter site is clean, dry and intact Ext - No pedal edema. Negative Eyal's Psych - Nml mood and affect Skin - Warm and dry Objective Data Vital Signs Vital Signs: Vital Signs - 24 hr 05/02/22 19:54 05/02/22 21:08 05/02/22 21:33 Temperature 98.1 F Pulse Rate 80 75 75 Respiratory Rate 18 17 Blood Pressure 150/78 H Pulse Oximetry 97 99 Oxygen D
[2022-05-03 20:35] VITALS: BP 149/83; PULSE 72; RESP 18; TEMP 36.6; O2SAT 96
[2022-05-03 21:49] VITALS: PULSE 72
[2022-05-03] MEDS: ALPRAZolam (*CRX) 0.5 MG TABLET PO (21:49)
[2022-05-03] MEDS: METOPROLOL SUCCINATE EXT REL 25 MG TABCR PO (21:49)
[2022-05-03] MEDS: VENLAFAXINE HCL XR 75 MG CAP.ER.24H 150 MG PO (21:49)
[2022-05-03] MEDS: predniSONE 2.5 MG TABLET PO (21:50)
[2022-05-04 05:18] VITALS: BP 138/64; PULSE 67; RESP 20; TEMP 36.6; O2SAT 97
--- NOTE | 2022-05-04 08:10 | P.PNNP_ITS ---
Progress Note: A&P Assessment and Plan (1) End-stage renal disease on peritoneal dialysis: Code(s): N18.6 - End stage renal disease; Z99.2 - Dependence on renal dialysis Status: Acute Assessment and Plan: * due to reflux nephropathy * s/p failed transplant * continue nightly CCPD * The patient looks euvolemic (2) Peritonitis: Code(s): K65.9 - Peritonitis, unspecified Status: Acute Assessment and Plan: * PD flud cell count quite suggestive * PD fluid and blood cultures negative to date * did receive antibiotics BEFORE PD fluid sample was collected (which may have skewed PD fluid culture results) * repeat PD fluid cell count better A couple of days later and the most recent test was normal. * she did have a splenic infarct. It is possible that the leukocytes in the fluid were sympathetic from the splenic infarct and that there was no infection it is hard to prove this. * She is on intraperitoneal vancomycin. her next dose is due Wednesday. I talked with Gloria at Dr. Clancy's office and let her know about the ant ibiotics and about the splenic infarct. (3) Hypokalemia: Code(s): E87.6 - Hypokalemia Status: Acute Assessment and Plan: * doing better * Potassium is normal today (4) Erythropoietin deficiency anemia: Code(s): D63.1 - Anemia in chronic kidney disease Status: Chronic Assessment and Plan: * due to ESRD * no need for Epogen currently * Hemoglobin 10.7 yesterday (5) Renal osteodystrophy: Code(s): N25.0 - Renal osteodystrophy Status: Chronic Assessment and Plan: * Phosphorus was normal yesterday * on binders Subjective Date/time seen: 05/04/22 14:59 Interval history: Tequila is feeling better today. the patient finished dialysis. Her fluid is clear. Flows were good. UF was around 1300. Exam Narrative: General: WD/WN female in NAD Heart: normal S1 and S2; no rub or gallop Lungs: clear to auscultation Abdomen: soft, nontender, nondistended, positive bowel sounds Extremities: no cyanosis or clubbing; no edema Skin: no acute rash Objective Data Vital Signs Vital Signs: Vital Signs - 24 hr 05/03/22 20:00 05/03/22 20:35 05/03/22 21:49 Temperature 36.6 C Pulse Rate 72 72 Respiratory Rate 18 Blood Pressure 149/83 H Pulse Oximetry 96 Oxygen Delivery Room Air 05/04/22 05:18 05/04/22 09:15 05/04/22 14:25 Temperature 36.6 C 36.4 C Pulse Rate 67 78 Respiratory Rate 20 14 Blood Pressure 138/64 144/74 H Pulse Oximetry 97 98 Oxygen Delivery Room Air Intake/Output Intake/Output: Intake & Output 05/01/22 05/02/22 05/03/22 05/04/22 23:59 23:59 23:59 23:59 Intake Total 1530 1040 800 440 Output Total 1508 1123 0 2168 Balance 22 -83 800 -1728 Meds/Results Medications: Active Medications Generic Name Dose Route Start Last Admin Trade Name Freq PRN Reason Stop Dose Admin Acetaminophen 650 mg 05/01/22 17:59 Acetaminophen 325 Mg Tablet PO Q6H PRN Mild Pain (1-3) or Fever Alprazolam 0.5 mg
--- NOTE | 2022-05-04 08:10 | PM.PNNEP ---
Progress Note: A&P Assessment and Plan (1) End-stage renal disease on peritoneal dialysis: Code(s): N18.6 - End stage renal disease; Z99.2 - Dependence on renal dialysis Status: Acute Assessment and Plan: due to reflux nephropathy s/p failed transplant continue nightly CCPD The patient looks euvolemic (2) Peritonitis: Code(s): K65.9 - Peritonitis, unspecified Status: Acute Assessment and Plan: PD flud cell count quite suggestive PD fluid and blood cultures negative to date did receive antibiotics BEFORE PD fluid sample was collected (which may have skewed PD fluid culture results) repeat PD fluid cell count better A couple of days later and the most recent test was normal. she did have a splenic infarct. It is possible that the leukocytes in the fluid were sympathetic from the splenic infarct and that there was no infection it is hard to prove this. She is on intraperitoneal vancomycin. her next dose is due Wednesday. I talked with Gloria at Dr. Clancy's office and let her know about the antibiotics and about the splenic infarct. (3) Hypokalemia: Code(s): E87.6 - Hypokalemia Status: Acute Assessment and Plan: doing better Potassium is normal today (4) Erythropoietin deficiency anemia: Code(s): D63.1 - Anemia in chronic kidney disease Status: Chronic Assessment and Plan: due to ESRD no need for Epogen currently Hemoglobin 10.7 yesterday (5) Renal osteodystrophy: Code(s): N25.0 - Renal osteodystrophy Status: Chronic Assessment and Plan: Phosphorus was normal yesterday on binders Subjective Date/time seen: 05/04/22 14:59 Interval history: Tequila is feeling better today. the patient finished dialysis. Her fluid is clear. Flows were good. UF was around 1300. Exam Narrative: General: WD/WN female in NAD Heart: normal S1 and S2; no rub or gallop Lungs: clear to auscultation Abdomen: soft, nontender, nondistended, positive bowel sounds Extremities: no cyanosis or clubbing; no edema Skin: no acute rash Objective Data Vital Signs Vital Signs: Vital Signs - 24 hr 05/03/22 20:00 05/03/22 20:35 05/03/22 21:49 Temperature 36.6 C Pulse Rate 72 72 Respiratory Rate 18 Blood Pressure 149/83 H Pulse Oximetry 96 Oxygen Delivery Room Air 05/04/22 05:18 05/04/22 09:15 05/04/22 14:25 Temperature 36.6 C 36.4 C Pulse Rate 67 78 Respiratory Rate 20 14 Blood Pressure 138/64 144/74 H Pulse Oximetry 97 98 Oxygen Delivery Room Air Intake/Output Intake/Output: Intake & Output 05/01/22 05/02/22 05/03/22 05/04/22 23:59 23:59 23:59 23:59 Intake Total 1530 1040 800 440 Output Total 1508 1123 0 2168 Balance 22 800 -1728 Meds/Results Medications: Active Medications Generic Name Dose Route Start Last Admin Trade Name Freq PRN Reason Stop Dose Admin Acetaminophen 650 mg 05/01/22 17:59 Acetaminophen 325 Mg Tablet PO Q6H PRN Mild Pain (1-3) or Fever Alprazolam 0.5 mg 04/26/22 21:00 05/03/22 21:49 Alprazolam (*Crx) 0.5 Mg Tablet PO 0.5 mg HS JUDITH Administration Calcium Acetate 667 mg 04/26/22 12:00 05/04/22 11:01 Calcium Acetate 667 Mg Tablet PO 667 mg TIDWM JUDITH Administration Dicyclomine HCl 20 mg 04/27/22 11:09 04/27/22 20:44 Dicyclomine Hcl 10 Mg Capsule PO 20 mg QID PRN Administration Abdominal Cramping Fluticasone Propionate 2 spray 04/26/22 09:00 05/04/22 09:09 Fluticasone Propionate 0.05% Na Spr 16 Gm Btl (*Bkc) NASAL 2 spray DAILY JUDITH Administration Heparin Sodium (Porcine) 5,000 units 04/25/22 21:00 05/04/22 09:09 Heparin Sodium 5,000 Units/Ml Vial SUB-Q 5,000 units Q12HR JUDITH Administration Lactulose 20 gm 04/26/22 15:26 04/26/22 15:37 Lactulose 20 Gm/30 Ml Udc PO 20 gm QAM PRN Administration Constipation Metoprolol Succ
[2022-05-04] MEDS: HEPARIN SODIUM 5,000 UNITS/ML VIAL 5000 UNITS SUB-Q (09:09)
[2022-05-04] MEDS: FLUTICASONE PROPIONATE 0.05% NA SPR 16 GM BTL (*BKC) 2 SPRAY NASAL (09:09)
[2022-05-04] MEDS: PANTOPRAZOLE 40 MG TABLET PO (09:10)
[2022-05-04] MEDS: CALCIUM ACETATE 667 MG TABLET PO ×2 (09:10→11:01)
[2022-05-04] MEDS: polyethylene glycoL 3350 17 GM POWD.PACK PO (09:10)
--- NOTE | 2022-05-04 10:27 | PCNWS ---
Weekly nutritional screen. Patient is tolerating current heart healthy diet with adequate intake at 75-100% of meals. Pt reports good appetite and intake, no questions or concerns. No weight loss reported. No nutritional needs at this time.
--- NOTE | 2022-05-04 14:22 | PM.DS ---
DS: Admitting Diagnosis Discharge Date 05/04/22 Admitting Diagnosis Abdominal pain DS: Discharge Diagnosis Discharge Diagnosis (1) Peritonitis: Code(s): K65.9 - Peritonitis, unspecified Status: Acute (2) Splenic infarct: Code(s): D73.5 - Infarction of spleen Status: Acute (3) Electrolyte abnormality: Code(s): E87.8 - Other disorders of electrolyte and fluid balance, not elsewhere classified Status: Acute (4) Hypertension: Code(s): I10 - Essential (primary) hypertension Status: Acute (5) Orthostatic hypotension: Code(s): I95.1 - Orthostatic hypotension Status: Acute (6) End-stage renal disease on peritoneal dialysis: Code(s): N18.6 - End stage renal disease; Z99.2 - Dependence on renal dialysis Status: Acute (7) Adrenal insufficiency: Code(s): E27.40 - Unspecified adrenocortical insufficiency Status: Acute (8) Dehydration: Code(s): E86.0 - Dehydration Status: Acute DS: Summary Hospital Course Reason for hospitalization: 51yo female with ESRD and HTN here for abdominal pain. Please see H&P for details Hospital Course: Patient presents with abdominal pain. Peritoneal fluid was collected and was cloudy with 2287 nucleated cells a majority of which were neutrophils.? Blood cultures were negative.? Peritoneal cultures (04/26) negative but was on abx when the culture was drawn. She was treated with ceftazidime.? Repeat peritoneal fluid with 103 nucleated cells. Abdominal pain improving but still present that is probably related to the splenic infarct. She received Vanco intraperitoneal with first dose 05/01/22 at 1830). Discussed with nephrology with next dose of Vanco IP on 05/06/22 to be arranged by nephrology. Patient with persistent abd pain despite appropriate treatment. She is constipated which could be contributing to her pain. She was treated with Miralax and suppositories with improved stool output. Repeat CT of the Abd shows trace ascites and a peripheral, wedge shaped splenic hypodensities probably infarcts. Some evidence this was present on admission and patient's pain has been present since admission. Splenic infarcts associated with hypercoagulable state, embolic from atrial fibrillation, but more likely related to Peritonitis/infection. She has had home heart monitors withuot issue in the past. Blood pressure more stable with SBP 130-160 mostly.?We continued Toprol.? May need to tolerate higher blood pressure at times while supine given her history of orthostatic hypotension.? Patient has end-stage renal disease on peritoneal dialysis.? She tolerated this well with the peritonitis.? Nephrology followed. Patient overall did well and was able to be discharged home on 05/04/2022. Status at Discharge Cognitive/behavioral status at discharge: stable Time Spent with Patient Time attestation: Total time spent providing and/or coordinating discharge services: 35 minutes Time spent: Greater than 30 minutes Exam Narrative: AF 97.9 138/64 67 20 97% ra Gen - NARD Chest - CTA bilaterally, nml RR CV - RRR S1/S2 Abd - NT/ND, +BS. PD cath dressing clean and dry Ext - No pedal edema Psych - Nml mood and affect Skin - Warm and dry DS: Data Data Completed and Pending Labs on day of discharge: Preliminary micro results at discharge 04/30/22 19:06 Anaerobic Culture - Preliminary Dialysate Fluid Aerobic Culture - Preliminary Discharge Plan Discharge Attending physician on discharge: Fili Saini Consulting providers: Johnny Pfeiffer Discharging Clinician: Fili Saini Anticipated Discharge Date/Time: 05/04/22 14:29 Patient Disposition: Home, Self-Care Activity: as tolerated Diet: heart healthy Discharge Instructions: Continue dialysis as per your routine. Take precautions to avoid falls. Rise slowly from a lying or sitting position. Pause before standing or wa
[2022-05-04 14:25] VITALS: BP 144/74; PULSE 78; RESP 14; TEMP 36.4; O2SAT 98
== END 2022-05-04 15:54 | disposition home or self-care (01) | DRG 371 ==
LOC: ANHED 10:48 → ANH2MED 15:43
PROVIDERS: Chiropractor; Internal Medicine Nephrology; Physician Assistant; Admitting Provider Internal Medicine; Emergency Provider Emergency Medicine; Visit Provider Internal Medicine
DX: K65.9 Peritonitis, unspecified (principal); N18.6 End stage renal disease; I12.0 Hypertensive chronic kidney disease with stage 5 chronic kidney disease or end stage renal disease; E27.40 Unspecified adrenocortical insufficiency; D68.59 Other primary thrombophilia; T86.12 Kidney transplant failure; D73.5 Infarction of spleen; Z20.822 Contact with and (suspected) exposure to COVID-19; E87.8 Other disorders of electrolyte and fluid balance, not elsewhere classified; I95.1 Orthostatic hypotension; K59.00 Constipation, unspecified; E86.0 Dehydration; A08.4 Viral intestinal infection, unspecified; N25.0 Renal osteodystrophy; K21.9 Gastro-esophageal reflux disease without esophagitis; D63.1 Anemia in chronic kidney disease; G47.33 Obstructive sleep apnea (adult) (pediatric); F41.9 Anxiety disorder, unspecified; F32.A Depression, unspecified; I48.91 Unspecified atrial fibrillation; Z99.2 Dependence on renal dialysis
CPT/HCPCS: 36415; 74176; 80048; 80053; 80069; 83690; 83735; 84100; 85025; 85027; 86140; 86706; 87040; 87070; 87075; 87205; 87340; 87426; 89051; 90945; 93005; 96361; 96365; 96367; 96375; 96376; 99285; A9270; C9803; G0378; J0713; J1200; J1644; J2270; J2405; J3370; J3475; J7030

== ENCOUNTER 2022-07-19 21:56 | Emergency (ER) | payer MEDICARE, OTHER, SELFPAY ==
[2022-07-19] VITALS (7 sets, daily range): BP systolic 117–134; BP diastolic 76–92; PULSE 72–82; RESP 18–20; TEMP 36.2–36.6; O2SAT 99–100
--- NOTE | ~2022-07-19 | CT_ITS ---
EXAMINATION: CTA brain carotid DATE: 07/20/2022 00:36 INDICATION: Left hemiparesis. TECHNIQUE: Computed tomographic angiography (CTA) of the head was performed with 100 mL Omnipaque-350 intravenous contrast. CTA of the neck was performed with intravenous contrast. Automated exposure co ntrol and iterative reconstruction technique were employed. The dose-length product was 942.55 mGy-cm . Maximum intensity projection and volume rendered 3D-reconstructions were created by the [employer] t on a separate workstation. COMPARISON: Head CT 07/19/2022, brain MRI 10/15/2020 FINDINGS: HEAD CTA: There is no intracranial hemorrhage, acute infarction, or abnormal intracranial mass lesion . The ventricles are normal in size. The orbits are normal. The paranasal sinuses are clear. The mast oid air cells are normal. The vertebral arteries are codominant. There is no significant stenosis of basilar artery or the posterior cerebral arteries. There is no significant stenosis of the intracrani al internal carotid arteries or anterior or middle cerebral arteries. Anterior communicating artery i s normal. The posterior communicating arteries are normal. There is no aneurysm. NECK CTA: There are nodules in the thyroid measuring up to 10 mm, likely not clinically significant. There are no pathologically enlarged lymph nodes. There is mild plaque in proximal right internal car otid artery. There is 0% stenosis of the proximal right internal carotid artery relative to normal di stal artery lumen diameter (NASCET criteria). There is 0% stenosis of the proximal left internal rowan tid artery relative to normal distal artery lumen diameter. 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 There is no significant stenosis of the vertebral arteries. There is moderate cervica l spondylosis. IMPRESSION: 1. No aneurysm or significant intracranial arterial stenosis. 2. 0% stenosis of the proximal internal carotid arteries relative to normal distal artery lumen diame ters (NASCET criteria). 3. Totally occluded stent in left axillary vein. Reviewed, dictated and finalized at location A. TAPE CONVERTER OPERATOR IMPRESSION: 1. No aneurysm or significant intracranial arterial stenosis. 2. 0% stenosis of the proximal internal carotid arteries relative to normal dis tom artery lumen diameters (NASCET criteria). 3. Totally occluded stent in left axillary vein.
--- NOTE | ~2022-07-19 | CT_ITS ---
EXAMINATION: CT brain wo con DATE: 07/19/2022 22:25 INDICATION: Left arm weakness. Left facial weakness. TECHNIQUE: Computed tomography (CT) of the head was performed without intravenous contrast. The mA wa s adjusted according to patient size. Iterative reconstruction technique was employed. The dose-lengt h product was 605.33 mGy-cm. COMPARISON: Head CT 11/19/2017, brain MRI 10/15/2020 FINDINGS: There is no intracranial hemorrhage, acute infarction, or abnormal intracranial mass lesion . The ventricles are normal in size. The paranasal sinuses are clear. The orbits are normal. The mast oid air cells are normal. IMPRESSION: 1. No acute cardiopulmonary disease. Reviewed, dictated and finalized at location A. RV[employer]OR ENGRAVING
--- NOTE | 2022-07-19 22:04 | ECG_ITS ---
Measurements Intervals [place] Rate: 81 P: 21 MD: 163 QRS: 11 QRSD: 108 T: 32 QT: 408 QTc: 475 Interpretive Statements SINUS RHYTHM WITH OCCASIONAL SUPRAVENTRICULAR PREMATURE COMPLEXES POSSIBLE RIGHT VENTRICULAR CONDUCTION DELAY [RSR (QR) IN V1/V2] MODERATE VOLTAGE CRITERIA FOR LVH, CONSIDER NORMAL VARIANT [MEETS CRITERIA IN ONE OF: R(aVL), S(V1), R(V5), R(V5/V6)+S(V1)] NONSPECIFIC ST AND T-WAVE ABNORMALITIES ABNORMAL ECG Electronically Signed On 07-20-2022 10:32:08 [employer] by True Sanchez M.D.
[2022-07-19 22:48] LABS: Basophils Absolute Auto 0.06 K/mm3 (0.00-0.10); Basophils Percent Auto 0.4 % (0.0-1.0); Eosinophils Percent Auto 0.7 % (1.0-6.0); Hematocrit 30.8 % (35.0-49.0); Hemoglobin 11.3 g/dL (12.0-15.0); Immature Granulocyte Absolute 0.14 K/mm3 (0.00-0.00); Immature Granulocyte Percent A 0.9 % (0.0-0.0); Lymphocytes Absolute Auto 2.48 K/mm3 (1.10-4.50); Lymphocytes Percent Auto 16.1 % (18.0-42.0); Mean Corpuscular HGB Conc 36.7 g/dL (32.0-36.0); Mean Corpuscular Hemoglobin 32.6 pg (27.0-31.0); Mean Corpuscular Volume 88.8 fL (78.0-102.0); Mean Platelet Volume 10.5 fl (9.2-11.8); Monocytes Absolute Auto 0.88 K/mm3 (0.10-0.90); Monocytes Percent Auto 5.7 % (2.0-11.0); Neutrophils Absolute Auto 11.7 K/mm3 (1.7-7.2); Neutrophils Percent Auto 76.2 % (50.0-70.0); Platelet Count Result 428 K/mm3 (150-420); Red Blood Count 3.47 M/mm3 (4.20-5.40); Red Cell Distribution Width 15.5 % (11.6-14.4); White Blood Count 15.4 K/mm3 (4.8-10.8)
--- NOTE | 2022-07-19 22:48 | PC.NURSE ---
Pt states she hasn't done her peritoneal dialysis tonight and has her Drs. located at Issue, she wishes for [facility] neurology to be called for macy.
[2022-07-19 22:59] LABS: Partial Thromboplastin Time 22.1 SEC (23.90-30.70); Prothrombin Time 10.7 Seconds (9.50-12.10)
[2022-07-19 23:02] LABS: Alanine Aminotransferase 17 U/L (14-59); Albumin Level 3.3 g/dL (3.4-5.0); Alkaline Phosphatase 177 U/L (46-116); Anion Gap 18 mmol/L (8-16); Aspartate Amino Transferase < 10 U/L (15-37); Bilirubin,Total 0.4 mg/dL (0.00-1.00); Blood Urea Nitrogen 54 mg/dL (7-18); Calcium 9.9 mg/dL (8.5-10.1); Carbon Dioxide 24 mmol/L (21-32); Chloride 91 mmol/L (98-108); Estimated CRCL calculation 6 ml/min; Estimated Glomerular Filt Rate 4; Glucose 114 mg/dL (70-99); Osmolality Calculated 291 mOsm/kg (285-295); Sodium 133 mmol/L (136-145); Total Protein 7.1 g/dL (6.4-8.2); Troponin I 20.2 ng/L (0.00-60.4)
[2022-07-19 23:04] LABS: Ethanol < 3 mg/dL (0-6); Potassium 2.5 mmol/L (3.5-5.1)
--- NOTE | 2022-07-19 23:26 | ED.NEUROSD ---
HPI - Neuro Symptoms/Deficit General Chief Complaint: Neuro Symptoms/Deficit <True Tracey MD - Last Filed: 07/20/22 03:55> Stated Complaint: Neuro Deficit <True Tracey MD - Last Filed: 07/20/22 03:55> Time Seen by Provider: 07/19/22 22:03 <True Tracey MD - Last Filed: 07/20/22 03:55> Source: patient, family and EMS <True Tracey MD - Last Filed: 07/20/22 03:55> Mode of arrival: EMS <True rTacey MD - Last Filed: 07/20/22 03:55> Limitations: no limitations <True Tracey MD - Last Filed: 07/20/22 03:55> History of Present Illness HPI Narrative: PATIENT IS A 51-YEAR-OLD WHITE FEMALE ON CHRONIC PERITONEAL DIALYSIS AND A CHRONIC RIGHT YEH'S PALSYWAS BROUGHT BY EMS TO THE ED WITH LEFT HEMIPARESIS AND SLURRED SPEECH THAT STARTED AT 5:30 A.M. P.M. OR 5-1/2 HOURS PRIOR TO PATIENT'S ARRIVAL IN THE ED. SHE SAID HER LEFT ARM AND HAND FELT HEAVY AND IT WAS HARD TO WORK AND SHE HAD SLURRED SPEECH. AND SHE NOTICED THAT SHE WAS LITTLE WEAK ON THE LEFT LOWER EXTREMITY WELL. SHE SAID HER DELAY COMING TO THE EMERGENCY DEPARTMENT WAS BECAUSE HER DIALYSIS MACHINE FELL ON HER PHONE AND HER HAND WAS NOT WORKING WELL ENOUGH TO USE THE PHONE. SHE HAS NO HISTORY OF PREVIOUS STROKE. DENIES ANY VISUAL PROBLEMS. FAMILY NOTICED HER SPEECH IS DEFINITELY SLURRED AND THIS IS A CHANGE FOR OR USE ORAL STATE. SHE LIVES ALONE AND IS USUALLY INDEPENDENT FAR LIVING IN HER HOME AND WALKING OUT TO THE MAILBOX BUT USUALLY DOES NOT DO MORE THAN THAT BECAUSE OF HER GENERALIZED UNSTEADINESS. 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 ) <True Tracey MD - Last Filed: 07/20/22 03:55> Severity: moderate <True Tracey MD - Last Filed: 07/20/22 03:55> Quality: weak, constant and improving <True Tracey MD - Last Filed: 07/20/22 03:55> Relieving factors: time <True Tracey MD - Last Filed: 07/20/22 03:55> Exacerbating factors: none <True Tracey MD - Last Filed: 07/20/22 03:55> Context: sudden onset <True Tracey MD - Last Filed: 07/20/22 03:55> On Anticoagulants: No <True Tracey MD - Last Filed: 07/20/22 03:55> Associated symptoms: denies other symptoms, chest pain, cough, diaphoresis, fever/chills, headaches, loss of appetite, malaise, nausea/vomiting, seizures, shortness of breath and syncope <True Tracey MD - Last Filed: 07/20/22 03:55> Treatments Prior to Arrival: none <True Tracey MD - Last Filed: 07/20/22 03:55> Related Data Home Medications: Home Medications Medication Instructions Recorded Confirmed omeprazole 40 mg capsule,delayed 40 mg PO DAILY 08/08/19 07/20/22 release prednisone 2.5 mg tablet 5 mg PO DAILY 08/08/19 07/20/22 amlodipine 10 mg tablet 10 mg PO DAILY 07/19/22 07/20/22 calcitriol 0.5 mcg capsule 1 mcg PO DAILY 07/19/22 07/20/22 clonidine HCl 0.1 mg tablet 0.1 mg PO PRN PRN Hypertension 07/19/22 07/20/22 irbesartan 300 mg tablet 150 mg PO PRN PRN Hypertension 07/19/22 07/20/22 metoprolol tartrate 25 mg tablet 25 mg PO BID 07/19/22 07/20/22 midodrine 10 mg tablet 10 mg PO PRN PRN Hypotension 07/19/22 07/20/22 prochlorperazine maleate 10 mg 10 mg PO HS 07/19/22 07/20/22 tablet venlafaxine 150 mg 150 mg PO DAILY 07/19/22 07/20/22 capsule,extended release 24 hr sucroferric oxyhydroxide 500 mg 500 mg PO USEASDIRECTD 07/20/22 07/20/22 chewable tablet (Velphoro)
[2022-07-19 23:44] LABS: SARS-CoV-2 RNA PCR Negative (Negative)
[2022-07-20] VITALS (84 sets, daily range): BP systolic 107–160; BP diastolic 58–103; PULSE 74–103; RESP 11–32; TEMP 36.6–36.8; O2SAT 96–100
[2022-07-20] MEDS: ACETAMINOPHEN 325 MG TABLET 650 MG PO (00:19)
[2022-07-20] MEDS: POTASSIUM BICARBONATE 25 MEQ TABEF 50 MEQ PO ×2 (00:21→03:06)
--- NOTE | 2022-07-20 01:13 | PC.NURSE ---
Pt sitting beside c family member in room. Having conversation,pt remains A&O x3, still noted slurred speech, pt was able to tolerate sipping water well and drank all the K+ effervescent given. Call was placed to [facility] for neuro to call back c CTA results. Call back received, discussed POC. Pt repositioned in bed for comfort and c/o back spasms. ERP informed.
--- NOTE | 2022-07-20 01:28 | PC.NURSE ---
Spoke c pt., family and ERP, will try to call hospitalist Garry for consultation and possible admit. ERP infomed pt and family member of no beds available at [facility] or [facility] system for transfer. Call to Garry, DIRECTOR INFORMATION made and she will call back soon to speak c Dr Tracey.
[2022-07-20] MEDS: ONDANSETRON INJ 4 MG/2 ML VIAL IV PUSH (01:38)
[2022-07-20] MEDS: traMADol HCL (*CRX) 50 MG TABLET PO (01:40)
[2022-07-20] MEDS: ATORVASTATIN 40 MG TABLET PO (01:58)
[2022-07-20] MEDS: ASPIRIN 325 MG ENTERIC TABLET PO (01:59)
--- NOTE | 2022-07-20 02:13 | PC.NURSE ---
Pt given hospital bed at this time for comfort, POC discussed c pt and family about trying to find a bed at another facility for care needed. Pt resting at this time c VSS, monitor shws SR.
--- NOTE | 2022-07-20 02:19 | PC.NURSE ---
[facility] notified and spoke to Dr Tracey. Report given for neuro consult and transfer, Dr Tracey spoke to Dr Talbert at [facility] and they accept for transfer.
--- NOTE | 2022-07-20 03:07 | PC.NURSE ---
Pt resting on side, awakens easily, POC for transfer to [facility] discussed c pt, will try to transfer to bed at [facility] in AM sometime.
--- NOTE | 2022-07-20 03:57 | PC.NURSE ---
Pt sleeping, no distress noted, continuing to monitor. VSS.
--- NOTE | 2022-07-20 05:01 | PC.NURSE ---
Call back to [facility] for recheck status, no bed at this time, will probably have a bed for transfer to [facility] during daytime today. Pt sleeping, no distress, continuing to monitor. VSS.
--- NOTE | 2022-07-20 06:36 | PC.NURSE ---
Pt is sleeping, no distress noted, RR even and nonlabored, VSS.
--- NOTE | 2022-07-20 07:08 | PC.NURSE ---
Report to Cristi Wolff
--- NOTE | 2022-07-20 07:25 | PC.NURSE ---
Assumed care of patient. AM labs have been drawn, will fax results to [facility]. Pt resting comfortably, safety intern at bedside. Updated on plan of care. Pt denies suicidal ideation at this time. Breakfast has been ordered
[2022-07-20 07:28] LABS: Anion Gap 12 mmol/L (8-16); Blood Urea Nitrogen 55 mg/dL (7-18); Calcium 9.3 mg/dL (8.5-10.1); Carbon Dioxide 26 mmol/L (21-32); Chloride 91 mmol/L (98-108); Estimated CRCL calculation 6 ml/min; Estimated Glomerular Filt Rate 4; Glucose 95 mg/dL (70-99); Osmolality Calculated 283 mOsm/kg (285-295); Sodium 129 mmol/L (136-145)
[2022-07-20 07:30] LABS: Potassium 3.9 mmol/L (3.5-5.1)
--- NOTE | 2022-07-20 09:29 | PC.NURSE ---
Breakfast tray ordered for patient with erp approval.
[2022-07-20] MEDS: PANTOPRAZOLE 40 MG TABLET PO (18:23)
[2022-07-20] MEDS: VENLAFAXINE HCL XR 75 MG CAP.ER.24H 150 MG PO (18:23)
[2022-07-20] MEDS: predniSONE 5 MG TABLET PO (18:23)
== END 2022-07-20 19:07 | disposition short-term general hospital (02) ==
PROVIDERS: Emergency Provider Emergency Medicine; PCP Family Medicine
DX: I63.9 Cerebral infarction, unspecified (principal); I12.0 Hypertensive chronic kidney disease with stage 5 chronic kidney disease or end stage renal disease; N18.6 End stage renal disease; Z87.891 Personal history of nicotine dependence; Z99.2 Dependence on renal dialysis; Z20.822 Contact with and (suspected) exposure to COVID-19; Z79.899 Other long term (current) drug therapy
CPT/HCPCS: 36415; 70450; 70496; 70498; 80048; 80053; 80307; 84484; 85025; 85610; 85730; 93005; 96374; 99285; A9270; J2405; J7512; Q9967; U0003; U0005

== ENCOUNTER 2022-08-26 12:36 | Outpatient (CLI) | payer MEDICARE, OTHER, SELFPAY ==
--- NOTE | ~2022-08-26 | XR_ITS ---
Clinical Indication: Pneumonia PA and lateral views of the chest: Comparison: 08/08/2019 Findings: The lungs are clear, without evidence of focal consolidation or pleural effusion. Cardiome diastinal silhouette is within normal limits. Vascular stent noted in the left axillary region. Bones and soft tissues are otherwise unremarkable. Impression: Clear lungs. Reviewed, dictated and finalized at location . Y CANDY MAKER Impression: Clear lungs.
== END 2022-08-26 12:37 | disposition home or self-care (01) ==
LOC: CHSIMG 12:38
PROVIDERS: PCP Family Medicine; Visit Provider Family Medicine
DX: J18.9 Pneumonia, unspecified organism (principal)
CPT/HCPCS: 71046

== ENCOUNTER 2023-11-16 14:09 | Outpatient (RCR) | payer MEDICARE, OTHER, SELFPAY ==
--- NOTE | 2023-11-17 11:21 | BUOTOPEVAL ---
Assessment and note entered by Jihan Silva OT Evaluation Information Assessment Status Evaluation Reported Pain Level Additional Pain Score Comments Client reports 4/10 pain at rest and 10/10 pain at worst. Pain decreases with edibles and ice pack. Pain increases with use. Assessment OT Clinical Summary Client is a 53 year old female who was referred to occupational therapy due to left distal radius fracture. Per client, she was putting her pants on and LOB causing her to fall on the ground and break her wrist. Client had her cast removed last Wednesday and reported her doctor gave her a 5 lbs. weight restriction for the left hand/wrist. Client has a follow up appointment with doctor next Wednesday, November 22. Prior to fracture, client completed ADLs independently at home and required assistance with cleaning the home, grocery shopping, and cooking. Client is currently having difficulty completing self care and home mgmt tasks safely due to limited ROM, strength, and coordination in left wrist/hand. Client also presents with minimal to moderate edema in left hand/wrist, which is impacting left UE function. She was provided with an HEP and demonstrated understanding of exercise and stretches listed. Client would benefit from skilled occupational therapy to address deficits in order to return to PLOF. Plan of Care Interventions Therapeutic Exercise,Manual Therapy,Neuro Re- education,Therapeutic Activities,Hot Pack/Cold Pack,Electrical Stimulation,Self-Care/Home Management,Ultrasound OT Services Indicated Yes Treatment Frequency and 2-3x/week for 10 visits Duration These treatments will address the objective and functional deficits as defined above. The patient will be advanced safely and appropriately in order for the patient to progress towards his/her prior level of function. Additional exercises will be introduced and as well as a comprehensive home exercise program upon discharge, if needed, ?to ensure carryover of functional gains achieved in the clinic. This treatment plan has been reviewed and agreement upon by the patient.
--- NOTE | 2023-12-15 07:24 | BUOTOPEVAL ---
Assessment and note entered by Jihan Silva, OT Evaluation Information Assessment Status Progress Subjective Information The patient reports that strength in hand has gotten much better. The patient reports she can open a twist off bottle by herself where in the beginning she could not open it at all. She is still having difficulty with pinching to clip fingernails and utilize materials for dialysis. Reported Pain Level Pain Score 3: Self Report Pain Score 5: Self Report Pain Score 3: Self Report Pain Score 0: Self Report Additional Pain Score Comments Patient reports chronic pestering pain. Additional Pain Score Comments Client reports 4/10 pain at rest and 10/10 pain at worst. Pain decreases with edibles and ice pack. Pain increases with use. 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 The patient continues to demonstrate deficits in radial/ulnar deviation, alpaca farmer strength, pain, and discharge HEP education for patient to maintain function upon discharge. The patient to continue with skilled OT to address deficits and return to PLOF. Plan of Care Interventions Therapeutic Exercise,Manual Therapy,Neuro Re- education,Therapeutic Activities,Hot Pack/Cold Pack,Self-Care/Home Management OT Services Indicated Yes Treatment Frequency and 2x/week for 10 visits. Duration These treatments will address the objective and functional deficits as defined above. The patient will be advanced safely and appropriately in order for the patient to progress towards his/her prior level of function. Additional exercises will be introduced and as well as a comprehensive home exercise program upon discharge, if needed, ?to ensure carryover of functional gains achieved in the clinic. This treatment plan has been reviewed and agreement upon by the patient.
--- NOTE | 2024-01-07 16:47 | OTOPDC ---
Assessment and note entered by Jihan Silva, OT Evaluation Information Assessment Status Discharge Reported Pain Level Pain Score 3: Self Report Assessment OT Clinical Summary The patient demonstrates significant improvement in function of L UE through decreased pain and improvement in mobility, ROM, strength and fine motor coordination. She continues to have minimal discomfort during large hand gripping and pulling activities, therapist educated the patient to condition hand for increased gripping strengthening with small excelsior machine tender to decrease pain. The patient scored 50% on QuickDASH questionnaire at time of discharge, due to the patient's laxity in tendons and weakness of B thumbs, her pinch and excelsior machine tender strength continue to be affected but the patient thinks that is genetic. The patient demonstrated good progress since SOC and demonstrates plateau at this time, the patient is discharged with UE HEP to maintain progress and function. Plan of Care OT Services Indicated No
== END 2024-01-07 16:54 | disposition home or self-care (01) ==
LOC: CHSOT 14:09
PROVIDERS: Visit Provider Orthopaedic Surgery
DX: S52.502D Unspecified fracture of the lower end of left radius, subsequent encounter for closed fracture with routine healing (principal)
CPT/HCPCS: 97110; 97140; 97166; 97530